=== PATIENT | male | born 1965 | race African-American/Black ===

== ENCOUNTER 2016-06-29 13:52 | Emergency (ER) | payer MEDICAID ==
[~2016-06-29] VITALS: Ht 175.3 cm; Wt 75.0 kg
[~2016-06-29 13:52] MED LIST: CEPH500C2 PO; CYCL5TAB PO; DIPH25CA83 PO; P20 PO
[2016-06-29 16:23] LABS: BASOPHILS % 0.6 % (0.0-2.0); EOSINOPHILS % 0.1 % (0.0-5.0); HEMATOCRIT. 44.7 % (42.0-52.0); HEMOGLOBIN. 14.7 g/dL (14.0-18.0); LYMPHOCYTES % 20.1 % (20.0-50.0); MEAN CORPUSCULAR HEMOGLOBIN 31.3 pg (28.0-32.0); MEAN CORPUSCULAR HGB CONC 32.9 g/dL (31.0-37.0); MEAN CORPUSCULAR VOLUME 95.1 fL (80.0-94.0); MEAN PLATELET VOLUME 6.9 fl (7.4-10.4); MONOCYTES % 3.6 % (2.0-8.0); NEUTROPHILS % 75.6 % (40.0-76.0); PLATELET 426 x1000/uL (130-400); RED CELL DISTRIBUTION WIDTH 14.3 % (11.6-14.6)
[2016-06-29 16:25] VITALS: BP 155/80
[2016-06-29 16:26] LABS: CHLORIDE 110 mEq/L (98-107); INDEX HEMOLYSI 1 (1-3); INDEX ICTERIC 1 (1-4); INDEX LIPEMIC 1 (1-3)
[2016-06-29 16:33] LABS: ALBUMIN 3.8 g/dL (3.4-5.0); ANION GAP 15; CALCIUM 8.8 mg/dL (8.5-10.1); CARBON DIOXIDE 22 mEq/L (21-32); UREA NITROGEN BLOOD 6 mg/dL (7-21); eGFR > 60 mL/min (>60)
[2016-06-29 16:36] LABS: ALANINE AMINOTRANSFERASE 9 IU/L (13-61)
[2016-06-29] MEDS ORDERED: ACETAMINOPHEN 500MG TABLET PO ONE (17:30)
== END 2016-06-29 18:22 | disposition home or self-care (01) ==
LOC: ER 14:09
DX: B35.3 Tinea pedis (principal); G89.29 Other chronic pain; M19.90 Unspecified osteoarthritis, unspecified site; M79.671 Pain in right foot; M79.672 Pain in left foot; Z79.899 Other long term (current) drug therapy
CPT/HCPCS: 36415; 73610; 80053; 85025; 99285; Z7610

== ENCOUNTER 2016-11-02 14:59 | Emergency (ER) | payer MEDICAID ==
[~2016-11-02] VITALS: Ht 172.7 cm; Wt 70.0 kg
[2016-11-02 15:01] VITALS: BP 177/106
== END 2016-11-02 20:33 | disposition left against medical advice (07) ==
LOC: ER 15:00
DX: M79.605 Pain in left leg (principal); M79.604 Pain in right leg; Z53.21 Procedure and treatment not carried out due to patient leaving prior to being seen by health care provider

== ENCOUNTER 2016-12-10 10:43 | Emergency (ER) | payer MEDICAID ==
[~2016-12-10] VITALS: Ht 172.7 cm; Wt 65.0 kg
[2016-12-10] MEDS ORDERED: SODIUM CHLORIDE 0.9% 1,000 ML IV ONE (17:02)
[2016-12-10] MEDS ORDERED: KETOROLAC 30MG/ML VIAL IV STA (17:02)
[2016-12-10 17:41] LABS: INR 1.1; PROTHROMBIN TIME 11.5 sec (9.4-11.6)
[2016-12-10 17:44] LABS: CARBON DIOXIDE 26 mEq/L (21-32); CHLORIDE 104 mEq/L (98-107)
[2016-12-10 17:49] LABS: BASOPHILS % 0.9 % (0.0-2.0); EOSINOPHILS % 1.2 % (0.0-5.0); HEMATOCRIT. 50.1 % (42.0-52.0); HEMOGLOBIN. 16.8 g/dL (14.0-18.0); LYMPHOCYTES % 32.9 % (20.0-50.0); MEAN CORPUSCULAR HEMOGLOBIN 31.8 pg (28.0-32.0); MEAN CORPUSCULAR VOLUME 94.6 fL (80.0-94.0); MEAN PLATELET VOLUME 7.3 fl (7.4-10.4); PLATELET 407 x1000/uL (130-400); RED BLOOD CELL COUNT 5.29 mill/uL (4.7-6.1)
[2016-12-10 18:51] VITALS: BP 151/82
== END 2016-12-10 20:36 | disposition home or self-care (01) ==
LOC: ER 10:52
DX: L97.829 Non-pressure chronic ulcer of other part of left lower leg with unspecified severity (principal); G89.29 Other chronic pain; M19.90 Unspecified osteoarthritis, unspecified site
CPT/HCPCS: 36415; 73562; 80053; 83605; 85025; 85610; 93971; 96361; 96374; 99285; J1885; J7030; Z7610

== ENCOUNTER 2016-12-19 13:06 | Emergency (ER) | payer MEDICAID ==
[~2016-12-19] VITALS: Ht 175.3 cm; Wt 76.0 kg
[2016-12-19] MEDS ORDERED: KETOROLAC 60MG/2ML VIAL IM ONE ×2 (14:30→16:00)
[2016-12-19] MEDS ORDERED: LIDOCAINE HCL 1% 20ML VIAL (Pyxis) INJ MC ONE (14:30)
[2016-12-19] MEDS ORDERED: BACITRACIN ZINC OINT UDPKT TOP ONE (14:30)
[2016-12-19] MEDS ORDERED: HYDROCODONE/ACETAMINOPHEN 5/325MG TABLET PO ONE (19:30)
[2016-12-19 20:18] VITALS: BP 151/78
== END 2016-12-19 21:40 | disposition home or self-care (01) ==
LOC: ER 14:48
DX: M25.562 Pain in left knee (principal); M25.561 Pain in right knee; I10 Essential (primary) hypertension; L97.829 Non-pressure chronic ulcer of other part of left lower leg with unspecified severity; Z79.899 Other long term (current) drug therapy
CPT/HCPCS: 73562; 73630; 96372; 99284; J1885

== ENCOUNTER 2021-04-01 20:00 | Inpatient (IN) | payer MEDICAID, OTHER ==
[~2021-04-01] VITALS: Ht 175.3 cm; Wt 55.4 kg
[2021-04-01] MEDS ORDERED: ACETAMINOPHEN 325MG TABLET PO STA (20:10)
[2021-04-01] MEDS ORDERED: SODIUM CHLORIDE 0.9% 1000ML BAG (SEPSIS BOLUS) IV ONE (20:15)
[2021-04-01] MEDS ORDERED: VANCOMYCIN 1G PREMIX 200 ML IV ONE (20:15)
[2021-04-01] MEDS ORDERED: ALBUTEROL (0.083%) 2.5MG/3ML NEB HHN ONE (20:15)
[2021-04-01 20:57] LABS: BASOPHILS % 1.5 % (0.0-2.0); HEMATOCRIT. 33.8 % (42.0-52.0); LYMPHOCYTES % 39.9 % (20.0-50.0); MEAN CORPUSCULAR HEMOGLOBIN 27.8 pg (28.0-32.0); MEAN PLATELET VOLUME 7.8 fl (7.4-10.4); NEUTROPHILS % 47.6 % (40.0-76.0); PLATELET 410 x1000/uL (130-400); RED BLOOD CELL COUNT 3.97 mill/uL (4.7-6.1)
[2021-04-01 21:04] LABS: CHLORIDE 106 mEq/L (98-107)
[2021-04-01 21:09] LABS: ETHANOL BLOOD < 10 mg/dL
[2021-04-01 21:18] LABS: C REACTIVE PROTEIN QUANT 9.5 mg/L (0.0-3.0)
[2021-04-01] MEDS: CEFEPIME 1,000 MG in DEXTROSE 5% WATER 50 ML IV SCH (21:44)
[2021-04-01] MEDS ORDERED: ALBUTEROL (0.083%) 2.5MG/3ML NEB HHN SCH (23:15)
[2021-04-01] MEDS ORDERED: METHYLPREDNISOLONE SOD SUCC 125 MG/2 ML VIAL IV SCH (23:15)
[2021-04-02] VITALS (8 sets, daily range): BP systolic 120–157; BP diastolic 74–96
[2021-04-02] MEDS ORDERED: ALBUTEROL (0.5%) 2.5MG/0.5ML NEB HHN ONE (00:30)
[2021-04-02] MEDS ORDERED: AZITHROMYCIN 500 MG in DEXT 5% WATER 250 ML IV SCH (00:30)
[2021-04-02] MEDS ORDERED: IPRATROPIUM/ALBUTEROL 0.5-3(2.5)MG/3ML NEB HHN PRN (00:30)
[2021-04-02] MEDS: METHYLPREDNISOLONE SOD SUCC 125 MG/2 ML VIAL IV SCH ×3 (00:30→08:57)
[2021-04-02] MEDS ORDERED: ONDANSETRON HCL 4MG/2ML INJ IV PRN (00:30)
[2021-04-02] MEDS ORDERED: ACETAMINOPHEN 325MG TABLET PO PRN (00:30)
[2021-04-02] MEDS ORDERED: MAGNESIUM/ALUMINUM HYDROXIDE/SIMETHICONE 30ML UDC PO PRN (00:30)
[2021-04-02] MEDS ORDERED: CEFTRIAXONE 1 G PREMIX 50 ML IV SCH ×2 (00:30→12:45)
[2021-04-02 01:12] LABS: CLARITY URINE CLEAR (CLEAR); COLOR URINE YELLOW (YELLOW); KETONES URINE NEGATIVE (NEGATIVE); LEUKOCYTE ESTERASE URINE NEGATIVE (NEGATIVE); NITRITE URINE NEGATIVE (NEGATIVE); OCCULT BLOOD URINE NEGATIVE (NEGATIVE); PROTEIN URINE 1+ (NEGATIVE); SPECIFIC GRAVITY URINE 1.014 (1.005-1.030)
[2021-04-02 01:47] LABS: *AMPHETAMINES SCREEN URINE NEGATIVE (NEGATIVE); *BARBITURATES SCREEN URINE NEGATIVE (NEGATIVE)
[2021-04-02 01:48] LABS: *BENZODIAZEPINES SCREEN URINE NEGATIVE (NEGATIVE); *COCAINE SCREEN URINE PRESUMTIVE POSITIVE (NEGATIVE); CANNABINOID URINE SCREEN PRESUMTIVE POSITIVE (NEGATIVE); METHADONE URINE SCREEN NEGATIVE (NEGATIVE); OPIATES URINE SCREEN NEGATIVE (NEGATIVE); PHENCYCLIDINE URINE SCREEN NEGATIVE (NEGATIVE)
[2021-04-02] MEDS: CLONIDINE 0.1MG TABLET PO PRN (06:59)
[2021-04-02] MEDS: CEFEPIME 1,000 MG in DEXTROSE 5% WATER 50 ML IV SCH (08:57)
[2021-04-02] MEDS: ENOXAPARIN 40MG/0.4ML SYR SUBCUT SCH (08:58)
[2021-04-02] MEDS ORDERED: AZITHROMYCIN 500MG/250ML 250 ML IV ONE (12:45)
[2021-04-02] MEDS: POTASSIUM CHLORIDE 20MEQ TABLET SR PO SCH (12:54)
[2021-04-02] MEDS: FUROSEMIDE 40MG/4ML VIAL IVP SCH (12:54)
[2021-04-02] MEDS ORDERED: CEFTRIAXONE 1,000 MG in DEXTROSE 5% WATER 50 ML IV SCH (20:30)
[2021-04-02] MEDS ORDERED: AZITHROMYCIN 500MG in DEXTROSE 5% WATER 250ML IV SCH (21:00)
[2021-04-02] MEDS: METHYLPREDNISOLONE SOD SUCC 40 MG/ML VIAL IV SCH (21:23)
[2021-04-03] VITALS (10 sets, daily range): BP systolic 111–173; BP diastolic 54–94
[2021-04-03] MEDS: CLONIDINE 0.1MG TABLET PO PRN (04:17)
[2021-04-03] MEDS: METHYLPREDNISOLONE SOD SUCC 40 MG/ML VIAL IV SCH ×2 (05:29→14:00)
[2021-04-03 09:24] LABS: HEMATOCRIT. 32.1 % (42.0-52.0); HEMOGLOBIN. 10.3 g/dL (14.0-18.0); MEAN CORPUSCULAR HEMOGLOBIN 27.1 pg (28.0-32.0); MEAN CORPUSCULAR VOLUME 84.9 fL (80.0-94.0); MEAN PLATELET VOLUME 8.5 fl (7.4-10.4); PLATELET 370 x1000/uL (130-400); RED BLOOD CELL COUNT 3.78 mill/uL (4.7-6.1)
[2021-04-03 09:34] LABS: CHLORIDE 105 mEq/L (98-107)
[2021-04-03 09:41] LABS: LDL CHOLESTEROL 99 mg/dL (5-100)
[2021-04-03 09:42] LABS: HDL CHOLESTEROL 36 mg/dL (40-59)
[2021-04-03] MEDS: FUROSEMIDE 40MG/4ML VIAL IVP SCH (10:15)
[2021-04-03] MEDS: POTASSIUM CHLORIDE 20MEQ TABLET SR PO SCH (10:15)
[2021-04-03] MEDS: ENOXAPARIN 40MG/0.4ML SYR SUBCUT SCH (10:16)
[2021-04-03 15:15] LABS: PLATELET ESTIMATE NORMAL
== END 2021-04-03 16:50 | disposition home or self-care (01) | DRG 140 ==
LOC: ER 20:00 → EDBEDREQSVC 23:01 → EDBEDREQTM 23:01 → EDBEDREQ 23:01 → MICUSO 23:04 → 5EST 04-02 10:36
PROVIDERS: ADMIT Hospitalist; ATTEND Hospitalist
PROC: 5A09357 Assistance with Respiratory Ventilation, Less than 24 Consecutive Hours, Continuous Positive Airway Pressure (ICD-10-PCS; principal; 2021-04-02)
PROC: 5A09357 Assistance with Respiratory Ventilation, Less than 24 Consecutive Hours, Continuous Positive Airway Pressure (ICD-10-PCS; 2021-04-03)
DX: J44.1 Chronic obstructive pulmonary disease with (acute) exacerbation (principal); J96.01 Acute respiratory failure with hypoxia; I50.43 Acute on chronic combined systolic (congestive) and diastolic (congestive) heart failure; C79.51 Secondary malignant neoplasm of bone; J18.9 Pneumonia, unspecified organism; I11.0 Hypertensive heart disease with heart failure; C61 Malignant neoplasm of prostate; J44.0 Chronic obstructive pulmonary disease with (acute) lower respiratory infection; D64.9 Anemia, unspecified; E87.5 Hyperkalemia; F17.200 Nicotine dependence, unspecified, uncomplicated; F14.10 Cocaine abuse, uncomplicated; F12.10 Cannabis abuse, uncomplicated; E87.6 Hypokalemia; Z20.822 Contact with and (suspected) exposure to COVID-19; Z85.46 Personal history of malignant neoplasm of prostate; Z79.899 Other long term (current) drug therapy; Z87.01 Personal history of pneumonia (recurrent); Z82.49 Family history of ischemic heart disease and other diseases of the circulatory system; Z83.3 Family history of diabetes mellitus
CPT/HCPCS: 36415; 71045; 80053; 80061; 80305; 80320; 81003; 83605; 83880; 84145; 84484; 85025; 86140; 87426; 87804; 93005; 93306; 93970; 94640; 94660; 99291; C1893; J0456; J0692; J0696; J1650; J1940; J2405; J2920; J2930; J3370; J7030; J7060; G0480

== ENCOUNTER 2021-05-11 00:37 | Inpatient (IN) | payer OTHER ==
[2021-05-11] VITALS (56 sets, daily range): BP systolic 97–185; BP diastolic 57–104
[~2021-05-11] VITALS: Ht 165.1 cm; Wt 57.3 kg
[2021-05-11] MEDS ORDERED: METHYLPREDNISOLONE SOD SUCC 125 MG/2 ML VIAL IV STA (00:50)
[2021-05-11] MEDS ORDERED: IPRATROPIUM BROMIDE (0.02%) 0.5MG/2.5ML NEB HHN STA (00:50)
[2021-05-11] MEDS ORDERED: PIPERACILLIN/TAZ 3.375G PREMIX 50 ML IV ONE (01:00)
[2021-05-11] MEDS ORDERED: MAGNESIUM 2 G PREMIX 50 ML IV ONE (01:00)
[2021-05-11] MEDS ORDERED: VANCOMYCIN 1G PREMIX 200 ML IV ONE (01:00)
[2021-05-11] MEDS: ALBUTEROL (0.083%) 2.5MG/3ML NEB HHN SCH ×3 (01:30→02:00)
[2021-05-11] MEDS ORDERED: MIDAZOLAM HCL 50 MG in DEXTROSE 5% WATER 40 ML IV ONE (02:00)
[2021-05-11] MEDS ORDERED: SUCCINYLCHOLINE CHLORIDE 200MG/10ML IV ONE ×2 (02:00→09:17)
[2021-05-11] MEDS ORDERED: PROPOFOL 10MG/ML 100ML 100 ML IV ONE (02:00)
[2021-05-11 02:12] LABS: HEMATOCRIT. 33.6 % (42.0-52.0); HEMOGLOBIN. 10.7 g/dL (14.0-18.0); MEAN CORPUSCULAR HEMOGLOBIN 27.1 pg (28.0-32.0); MEAN CORPUSCULAR VOLUME 84.8 fL (80.0-94.0); MEAN PLATELET VOLUME 8.1 fl (7.4-10.4); PLATELET 467 x1000/uL (130-400); RED BLOOD CELL COUNT 3.96 mill/uL (4.7-6.1)
[2021-05-11] MEDS ORDERED: MIDAZOLAM 100MG/100ML PREMIX IV PRN (02:15)
[2021-05-11 02:21] LABS: CHLORIDE 106 mEq/L (98-107)
[2021-05-11 03:47] LABS: BG BASE EXCESS -4.4 mmol/L (-2.0-2.0); BG CARBOXYHEMOGLOBIN 3.7 % (0.5-1.5); BG DEOXYHEMOGLOBIN 1.2 % (0.0-5.0); BG FRACTION INSPIRED OXYGEN 100; BG HCO3 ACT 26.3 mmol/L (22.0-26.0); BG METHEMOGLOBIN 0.6 % (0.0-1.5); BG OXYGEN SATURATION 98.7 % (92.0-98.5); BG OXYHEMOGLOBIN 94.5 % (94.0-97.0); BG PCO2 78.1 mmHg (35.0-45.0); BG PH 7.145 (7.350-7.450); BG PO2 169.1 mmHg (75.0-100.0); BG SAMPLE SITE RIGHT RADIAL; BG TOTAL HEMOGLOBIN 13.8 g/dL (12.0-18.0); BG VENT MODE VENT - AC
[2021-05-11] MEDS ORDERED: MIDAZOLAM HCL 100 MG in SODIUM CHLORIDE 0.9% 100 ML IV PRN ×2 (04:30→09:45)
[2021-05-11] MEDS ORDERED: FENTANYL 2500MCG/250ML PMX 250 ML IV PRN ×2 (04:30→09:15)
[2021-05-11 06:27] LABS: PLATELET ESTIMATE INCREASED
[2021-05-11] MEDS ORDERED: IOHEXOL-350 100 ML BOTTLE ONE ×2 (07:19→12:42)
[2021-05-11 08:44] LABS: BG BASE EXCESS 0.4 mmol/L (-2.0-2.0); BG CARBOXYHEMOGLOBIN 0.7 % (0.5-1.5); BG DEOXYHEMOGLOBIN 4.7 % (0.0-5.0); BG HCO3 ACT 25.4 mmol/L (22.0-26.0); BG METHEMOGLOBIN 0.2 % (0.0-1.5); BG OXYGEN SATURATION 95.3 % (92.0-98.5); BG OXYHEMOGLOBIN 94.4 % (94.0-97.0); BG PCO2 42.8 mmHg (35.0-45.0); BG PH 7.392 (7.350-7.450); BG PO2 75.3 mmHg (75.0-100.0); BG SAMPLE SITE RIGHT BRACHIAL; BG TOTAL HEMOGLOBIN 10.8 g/dL (12.0-18.0); BG VENT MODE VENT - AC
[2021-05-11] MEDS ORDERED: MIDAZOLAM 100MG/100ML PMX 100 ML IV PRN (09:15)
[2021-05-11] MEDS ORDERED: ETOMIDATE 2MG/ML 10ML VIAL IV ONE (09:17)
[2021-05-11] MEDS ORDERED: FENTANYL CITRATE 2,500 MCG in SODIUM CHLORIDE 0.9% 200 ML IV PRN (09:45)
[2021-05-11] MEDS ORDERED: ONDANSETRON HCL 4MG/2ML INJ IV PRN ×2 (10:00)
[2021-05-11] MEDS ORDERED: ACETAMINOPHEN 325MG TABLET PO PRN (10:00)
[2021-05-11] MEDS: PANTOPRAZOLE SODIUM 40 MG/VIAL IV SCH (10:15)
[2021-05-11] MEDS: AMLODIPINE 10MG TABLET PO SCH (10:15)
[2021-05-11] MEDS ORDERED: METOPROLOL TARTRATE 50MG TABLET PO NR (10:30)
[2021-05-11] MEDS ORDERED: FUROSEMIDE 40MG/4ML VIAL IVP SCH (10:30)
[2021-05-11] MEDS ORDERED: CARVEDILOL 12.5MG TABLET PO SCH (10:30)
[2021-05-11] MEDS: LOSARTAN POTASSIUM 100 MG TABLET PO SCH (10:33)
[2021-05-11] MEDS: IPRATROPIUM/ALBUTEROL 0.5-3(2.5)MG/3ML NEB HHN SCH ×3 (12:18→20:05)
[2021-05-11] MEDS: PIPERACILLIN/TAZOBACTAM 3.375 G in DEXTROSE 5% WATER 50 ML IV SCH ×2 (13:16→21:34)
[2021-05-11] MEDS: CLONIDINE 0.1MG TABLET PO SCH ×2 (14:24→21:35)
[2021-05-11] MEDS: ACETYLCYSTEINE 100MG/ML 10% VIAL 4ML INH SCH (16:54)
[2021-05-11] MEDS ORDERED: METOPROLOL TARTRATE 50MG TABLET PO SCH (21:00)
[2021-05-11] MEDS: FENTANYL 2500MCG/250ML PMX 250 ML IV PRN (21:28)
[2021-05-11] MEDS: CARVEDILOL 12.5MG TABLET PO SCH (21:34)
[2021-05-12] VITALS (66 sets, daily range): BP systolic 100–149; BP diastolic 47–99
[2021-05-12] MEDS: IPRATROPIUM/ALBUTEROL 0.5-3(2.5)MG/3ML NEB HHN SCH ×6 (00:12→21:25)
[2021-05-12] MEDS: ACETYLCYSTEINE 100MG/ML 10% VIAL 4ML INH SCH ×4 (00:13→16:32)
[2021-05-12] MEDS: FENTANYL 2500MCG/250ML PMX 250 ML IV PRN (03:12)
[2021-05-12 05:36] LABS: BASOPHILS % 0.5 % (0.0-2.0); EOSINOPHILS % 0.1 % (0.0-5.0); HEMATOCRIT. 28.1 % (42.0-52.0); MEAN CORPUSCULAR HEMOGLOBIN 27.2 pg (28.0-32.0); MEAN CORPUSCULAR VOLUME 84.4 fL (80.0-94.0); MEAN PLATELET VOLUME 8.2 fl (7.4-10.4); MONOCYTES % 8.6 % (2.0-8.0); NEUTROPHILS % 67.8 % (40.0-76.0); PLATELET 387 x1000/uL (130-400); RED BLOOD CELL COUNT 3.33 mill/uL (4.7-6.1); RED CELL DISTRIBUTION WIDTH 16.4 % (11.6-14.6)
[2021-05-12] MEDS: CLONIDINE 0.1MG TABLET PO SCH (06:00)
[2021-05-12 06:06] LABS: CHLORIDE 105 mEq/L (98-107)
[2021-05-12] MEDS: PIPERACILLIN/TAZOBACTAM 3.375 G in DEXTROSE 5% WATER 50 ML IV SCH ×3 (06:43→21:07)
[2021-05-12] MEDS: PANTOPRAZOLE SODIUM 40 MG/VIAL IV SCH (08:02)
[2021-05-12] MEDS: AMLODIPINE 10MG TABLET PO SCH (08:03)
[2021-05-12] MEDS: CARVEDILOL 12.5MG TABLET PO SCH ×2 (08:03→20:23)
[2021-05-12] MEDS: LOSARTAN POTASSIUM 100 MG TABLET PO SCH (08:03)
[2021-05-12 08:50] LABS: BG CARBOXYHEMOGLOBIN 0.5 % (0.5-1.5); BG DEOXYHEMOGLOBIN 1.3 % (0.0-5.0); BG FRACTION INSPIRED OXYGEN 60; BG HCO3 ACT 26.5 mmol/L (22.0-26.0); BG METHEMOGLOBIN 0.2 % (0.0-1.5); BG OXYGEN SATURATION 98.7 % (92.0-98.5); BG PH 7.378 (7.350-7.450); BG PO2 127.9 mmHg (75.0-100.0); BG SAMPLE SITE RIGHT RADIAL; BG TOTAL HEMOGLOBIN 10.4 g/dL (12.0-18.0); BG VENT MODE VENT - AC
[2021-05-13] VITALS (36 sets, daily range): BP systolic 113–156; BP diastolic 50–102
[2021-05-13] MEDS: IPRATROPIUM/ALBUTEROL 0.5-3(2.5)MG/3ML NEB HHN SCH ×5 (00:15→20:07)
[2021-05-13] MEDS: PIPERACILLIN/TAZOBACTAM 3.375 G in DEXTROSE 5% WATER 50 ML IV SCH ×3 (07:21→21:46)
[2021-05-13] MEDS: ACETYLCYSTEINE 100MG/ML 10% VIAL 4ML INH SCH (09:46)
[2021-05-13 09:53] LABS: BASOPHILS % 1.2 % (0.0-2.0); EOSINOPHILS % 1.1 % (0.0-5.0); HEMATOCRIT. 28.6 % (42.0-52.0); HEMOGLOBIN. 9.5 g/dL (14.0-18.0); LYMPHOCYTES % 22.2 % (20.0-50.0); MEAN CORPUSCULAR VOLUME 84.8 fL (80.0-94.0); MEAN PLATELET VOLUME 7.8 fl (7.4-10.4); NEUTROPHILS % 66.5 % (40.0-76.0); PLATELET 373 x1000/uL (130-400); RED BLOOD CELL COUNT 3.38 mill/uL (4.7-6.1); RED CELL DISTRIBUTION WIDTH 16.4 % (11.6-14.6)
[2021-05-13 09:59] LABS: CHLORIDE 102 mEq/L (98-107)
[2021-05-13 10:02] LABS: BG BASE EXCESS 6.1 mmol/L (-2.0-2.0); BG CARBOXYHEMOGLOBIN 0.4 % (0.5-1.5); BG DEOXYHEMOGLOBIN 7.5 % (0.0-5.0); BG FRACTION INSPIRED OXYGEN 36; BG HCO3 ACT 30.7 mmol/L (22.0-26.0); BG METHEMOGLOBIN 0.3 % (0.0-1.5); BG OXYGEN SATURATION 92.4 % (92.0-98.5); BG OXYHEMOGLOBIN 91.8 % (94.0-97.0); BG PCO2 44.8 mmHg (35.0-45.0); BG PH 7.454 (7.350-7.450); BG PO2 64.7 mmHg (75.0-100.0); BG SAMPLE SITE RIGHT RADIAL; BG TOTAL HEMOGLOBIN 9.8 g/dL (12.0-18.0); BG VENT MODE NASAL CANNULA
[2021-05-13] MEDS: PANTOPRAZOLE SODIUM 40 MG/VIAL IV SCH (10:23)
[2021-05-13] MEDS: FUROSEMIDE 40MG/4ML VIAL IVP SCH ×2 (10:23→17:02)
[2021-05-13] MEDS: LOSARTAN POTASSIUM 100 MG TABLET PO SCH (10:24)
[2021-05-13] MEDS: CARVEDILOL 12.5MG TABLET PO SCH ×2 (10:24→21:47)
[2021-05-14] VITALS (19 sets, daily range): BP systolic 117–165; BP diastolic 43–114
[2021-05-14] MEDS: IPRATROPIUM/ALBUTEROL 0.5-3(2.5)MG/3ML NEB HHN SCH ×7 (00:20→21:40)
[2021-05-14] MEDS: ACETYLCYSTEINE 100MG/ML 10% VIAL 4ML INH SCH ×4 (04:10→21:40)
[2021-05-14] MEDS: PIPERACILLIN/TAZOBACTAM 3.375 G in DEXTROSE 5% WATER 50 ML IV SCH ×3 (08:42→21:47)
[2021-05-14] MEDS: FUROSEMIDE 40MG/4ML VIAL IVP SCH ×2 (08:42→17:16)
[2021-05-14] MEDS: LOSARTAN POTASSIUM 100 MG TABLET PO SCH (08:42)
[2021-05-14] MEDS: CARVEDILOL 12.5MG TABLET PO SCH ×2 (08:43→21:47)
[2021-05-14] MEDS: PANTOPRAZOLE SODIUM 40 MG/VIAL IV SCH (09:07)
[2021-05-14 13:32] LABS: EOSINOPHILS % 1.6 % (0.0-5.0); HEMATOCRIT. 32.2 % (42.0-52.0); HEMOGLOBIN. 10.6 g/dL (14.0-18.0); LYMPHOCYTES % 19.7 % (20.0-50.0); MEAN CORPUSCULAR HEMOGLOBIN 27.3 pg (28.0-32.0); MEAN CORPUSCULAR VOLUME 82.9 fL (80.0-94.0); MONOCYTES % 9.5 % (2.0-8.0); NEUTROPHILS % 68.2 % (40.0-76.0); PLATELET 444 x1000/uL (130-400); RED BLOOD CELL COUNT 3.88 mill/uL (4.7-6.1); RED CELL DISTRIBUTION WIDTH 16.7 % (11.6-14.6)
[2021-05-14 13:42] LABS: CHLORIDE 96 mEq/L (98-107)
[2021-05-14] MEDS ORDERED: POTASSIUM CHLORIDE 20MEQ TABLET SR PO NR (14:30)
[2021-05-15] VITALS (7 sets, daily range): BP systolic 121–156; BP diastolic 55–84
[2021-05-15] MEDS: IPRATROPIUM/ALBUTEROL 0.5-3(2.5)MG/3ML NEB HHN SCH ×3 (04:40→14:45)
[2021-05-15] MEDS: FUROSEMIDE 40MG/4ML VIAL IVP SCH ×2 (06:22→16:12)
[2021-05-15] MEDS: PIPERACILLIN/TAZOBACTAM 3.375 G in DEXTROSE 5% WATER 50 ML IV SCH ×2 (06:22→13:38)
[2021-05-15] MEDS: PANTOPRAZOLE SODIUM 40 MG/VIAL IV SCH (08:38)
[2021-05-15] MEDS: LOSARTAN POTASSIUM 100 MG TABLET PO SCH (08:38)
[2021-05-15] MEDS: CARVEDILOL 12.5MG TABLET PO SCH (08:39)
[2021-05-15] MEDS: ACETYLCYSTEINE 100MG/ML 10% VIAL 4ML INH SCH (10:40)
[2021-05-16] MEDS ORDERED: FAMOTIDINE 20MG TABLET PO SCH (06:40)
== END 2021-05-15 18:34 | disposition home or self-care (01) | DRG 720 ==
LOC: ER 00:37 → MICUSO 03:00 → 7EST 05-14 09:46
PROVIDERS: ADMIT Internal Medicine; ATTEND Internal Medicine
PROC: 0BH17EZ Insertion of Endotracheal Airway into Trachea, Via Natural or Artificial Opening (ICD-10-PCS; principal; 2021-05-11)
PROC: 5A1945Z Respiratory Ventilation, 24-96 Consecutive Hours (ICD-10-PCS; 2021-05-11)
DX: A41.9 Sepsis, unspecified organism (principal); I50.23 Acute on chronic systolic (congestive) heart failure; I74.5 Embolism and thrombosis of iliac artery; E87.2 Acidosis; J96.01 Acute respiratory failure with hypoxia; I42.0 Dilated cardiomyopathy; J96.02 Acute respiratory failure with hypercapnia; C79.51 Secondary malignant neoplasm of bone; I74.09 Other arterial embolism and thrombosis of abdominal aorta; J18.9 Pneumonia, unspecified organism; K56.7 Ileus, unspecified; R65.20 Severe sepsis without septic shock; J84.10 Pulmonary fibrosis, unspecified; C61 Malignant neoplasm of prostate; I34.0 Nonrheumatic mitral (valve) insufficiency; Z20.822 Contact with and (suspected) exposure to COVID-19; I11.0 Hypertensive heart disease with heart failure; D64.9 Anemia, unspecified; I16.0 Hypertensive urgency; Z82.49 Family history of ischemic heart disease and other diseases of the circulatory system; Z83.3 Family history of diabetes mellitus; F19.11 Other psychoactive substance abuse, in remission
CPT/HCPCS: 36415; 36600; 71045; 71275; 74174; 80048; 80053; 82375; 82805; 83605; 83880; 84145; 84484; 85025; 85379; 87070; 87426; 93005; 93970; 94002; 94003; 94640; 99291; C1893; C9113; J0330; J1940; J2250; J2543; J2704; J2930; J3010; J3370; J3475; J3490; J7040; J7050; J7060; J7608; Q9967; A4315

== ENCOUNTER 2021-07-15 05:37 | Inpatient (IN) | payer MEDICAID, OTHER ==
[~2021-07-15] VITALS: Ht 175.3 cm; Wt 52.6 kg
[2021-07-15] MEDS ORDERED: ALBUTEROL (0.083%) 2.5MG/3ML NEB HHN STA (05:53)
[2021-07-15] MEDS ORDERED: METHYLPREDNISOLONE SOD SUCC 125 MG/2 ML VIAL IV STA (05:53)
[2021-07-15] MEDS ORDERED: IPRATROPIUM BROMIDE (0.02%) 0.5MG/2.5ML NEB HHN STA (05:53)
[2021-07-15] MEDS ORDERED: MAGNESIUM 2 G PREMIX 50 ML IV STA (05:54)
[2021-07-15 06:08] LABS: BASOPHILS % 2.6 % (0.0-2.0); EOSINOPHILS % 1.8 % (0.0-5.0); HEMATOCRIT. 38.4 % (42.0-52.0); LYMPHOCYTES % 46.1 % (20.0-50.0); MEAN CORPUSCULAR HEMOGLOBIN 26.3 pg (28.0-32.0); MEAN CORPUSCULAR VOLUME 84.2 fL (80.0-94.0); MEAN PLATELET VOLUME 7.6 fl (7.4-10.4); NEUTROPHILS % 38.5 % (40.0-76.0); PLATELET 509 x1000/uL (130-400); RED BLOOD CELL COUNT 4.55 mill/uL (4.7-6.1); RED CELL DISTRIBUTION WIDTH 18.2 % (11.6-14.6)
[2021-07-15 06:17] LABS: CHLORIDE 108 mEq/L (98-107)
[2021-07-15] MEDS ORDERED: IPRATROPIUM BROMIDE (0.02%) 0.5MG/2.5ML NEB ONE (08:12)
[2021-07-15] MEDS ORDERED: ALBUTEROL (0.083%) 2.5MG/3ML NEB ONE (08:12)
[2021-07-15] MEDS ORDERED: FUROSEMIDE 40MG/4ML VIAL IVP ONE (08:30)
[2021-07-15] MEDS ORDERED: ENALAPRIL 2.5MG/2ML VIAL 2ML IV ONE (08:30)
[2021-07-15] MEDS ORDERED: ENALAPRIL 1.25MG/ML VIAL 1ML IV SCH (08:30)
[2021-07-15 11:14] LABS: BG BASE EXCESS 3.3 mmol/L (-2.0-2.0); BG CARBOXYHEMOGLOBIN 0.6 % (0.5-1.5); BG DEOXYHEMOGLOBIN 6.9 % (0.0-5.0); BG FRACTION INSPIRED OXYGEN 36; BG HCO3 ACT 27.6 mmol/L (22.0-26.0); BG METHEMOGLOBIN 0.2 % (0.0-1.5); BG OXYHEMOGLOBIN 92.3 % (94.0-97.0); BG PCO2 41.1 mmHg (35.0-45.0); BG PH 7.445 (7.350-7.450); BG PO2 63.1 mmHg (75.0-100.0); BG SAMPLE SITE RIGHT RADIAL; BG TOTAL HEMOGLOBIN 11.6 g/dL (12.0-18.0); BG VENT MODE NASAL CANNULA
[2021-07-15] MEDS ORDERED: ONDANSETRON HCL 4MG/2ML INJ IV PRN (12:00)
[2021-07-15] MEDS ORDERED: DIPHENHYDRAMINE 50MG/ML VIAL IV PRN (12:00)
[2021-07-15] MEDS ORDERED: ACETAMINOPHEN 325MG TABLET PO PRN (12:00)
[2021-07-15] MEDS ORDERED: CLONIDINE 0.1MG TABLET PO PRN (12:00)
[2021-07-15] MEDS ORDERED: HYDRALAZINE 20MG/ML VIAL IV PRN (12:00)
[2021-07-15] MEDS ORDERED: NALOXONE HCL 0.4MG/ML VIAL IV PRN (12:00)
[2021-07-15] MEDS ORDERED: MORPHINE SULFATE 2 MG/ML CPJ (NOT FOR IM USE) IV PRN (12:00)
[2021-07-15] MEDS ORDERED: IPRATROPIUM/ALBUTEROL 0.5-3(2.5)MG/3ML NEB HHN PRN (12:00)
[2021-07-15 12:05] VITALS: BP_SYST 122; BP_SYST 140; BP_DIAS 63; BP_DIAS 73
[2021-07-15 14:00] VITALS: BP 151/78
[2021-07-15 15:51] VITALS: BP 142/73
[2021-07-15] MEDS: LOSARTAN POTASSIUM 25 MG TABLET PO SCH (17:08)
[2021-07-15] MEDS ORDERED: APIX2.5T PO (17:15)
[2021-07-15] MEDS ORDERED: BP MEDICATION (17:15)
[2021-07-15] MEDS ORDERED: PRED1TAB PO (17:15)
[2021-07-15 18:00] VITALS: BP 157/75
[2021-07-15 20:00] VITALS: BP 132/70
[2021-07-15] MEDS ORDERED: ATORVASTATIN CALCIUM 40MG TABLET PO SCH (21:00)
[2021-07-15 22:00] VITALS: BP 146/68
[2021-07-16] VITALS (7 sets, daily range): BP systolic 136–161; BP diastolic 65–86
[2021-07-16 06:30] LABS: BASOPHILS % 0.4 % (0.0-2.0); EOSINOPHILS % 0.4 % (0.0-5.0); HEMATOCRIT. 29.9 % (42.0-52.0); HEMOGLOBIN. 9.3 g/dL (14.0-18.0); LYMPHOCYTES % 26.2 % (20.0-50.0); MEAN CORPUSCULAR HEMOGLOBIN 25.4 pg (28.0-32.0); MEAN CORPUSCULAR VOLUME 81.9 fL (80.0-94.0); MEAN PLATELET VOLUME 7.5 fl (7.4-10.4); MONOCYTES % 10.5 % (2.0-8.0); NEUTROPHILS % 62.5 % (40.0-76.0); PLATELET 385 x1000/uL (130-400); RED BLOOD CELL COUNT 3.65 mill/uL (4.7-6.1)
[2021-07-16 07:17] LABS: CHLORIDE 107 mEq/L (98-107)
[2021-07-16] MEDS ORDERED: FURO40TA5 MT (08:30)
[2021-07-16] MEDS ORDERED: POTASSIUM CHLORIDE 20MEQ TABLET SR PO SCH (08:30)
[2021-07-16] MEDS ORDERED: SPIR25TA PO (08:30)
[2021-07-16] MEDS ORDERED: ASPI-1406 MT (08:30)
[2021-07-16] MEDS ORDERED: LOSA25TA3 PO (08:30)
[2021-07-16] MEDS ORDERED: LIP40 PO (08:30)
[2021-07-16] MEDS: LOSARTAN POTASSIUM 25 MG TABLET PO SCH (08:34)
[2021-07-16] MEDS ORDERED: FUROSEMIDE 40MG/4ML VIAL IVP SCH (09:00)
[2021-07-16] MEDS ORDERED: SPIRONOLACTONE 25MG TABLET PO SCH (09:00)
[2021-07-16] MEDS ORDERED: ASPIRIN 81MG TABLET PO SCH (09:00)
== END 2021-07-16 16:45 | disposition home or self-care (01) | DRG 140 ==
LOC: ER 05:37 → 5EST 09:57 → ENRESERV 11:34
PROVIDERS: ADMIT Internal Medicine; ATTEND Internal Medicine
PROC: 5A09357 Assistance with Respiratory Ventilation, Less than 24 Consecutive Hours, Continuous Positive Airway Pressure (ICD-10-PCS; principal; 2021-07-15)
DX: J44.1 Chronic obstructive pulmonary disease with (acute) exacerbation (principal); J96.01 Acute respiratory failure with hypoxia; I50.23 Acute on chronic systolic (congestive) heart failure; C79.51 Secondary malignant neoplasm of bone; C61 Malignant neoplasm of prostate; I11.0 Hypertensive heart disease with heart failure; D64.9 Anemia, unspecified; D72.824 Basophilia; I16.0 Hypertensive urgency; I73.9 Peripheral vascular disease, unspecified; Z20.822 Contact with and (suspected) exposure to COVID-19; Z77.098 Contact with and (suspected) exposure to other hazardous, chiefly nonmedicinal, chemicals; F17.210 Nicotine dependence, cigarettes, uncomplicated; I25.2 Old myocardial infarction; Z82.49 Family history of ischemic heart disease and other diseases of the circulatory system; Z83.3 Family history of diabetes mellitus; Z87.01 Personal history of pneumonia (recurrent); Z92.21 Personal history of antineoplastic chemotherapy; Z71.6 Tobacco abuse counseling
CPT/HCPCS: 36415; 36600; 71045; 80053; 82375; 82805; 83880; 84484; 85025; 87426; 93005; 93306; 93880; 94644; 94660; 99291; C9803; J0360; J1940; J2405; J2930; J3475; J3490

== ENCOUNTER 2021-08-22 10:25 | Emergency (ER) | payer OTHER ==
[~2021-08-22] VITALS: Ht 175.3 cm; Wt 67.0 kg
[~2021-08-22 10:25] MED LIST changes: +APIX2.5T PO; +ASPI-1406 MT; -CEPH500C2 PO; -CYCL5TAB PO; -DIPH25CA83 PO; +FURO40TA5 MT; +LIP40 PO; +LOSA25TA3 PO; -P20 PO; +PRED1TAB PO; +SPIR25TA PO
[2021-08-22] MEDS ORDERED: IPRATROPIUM/ALBUTEROL 0.5-3(2.5)MG/3ML NEB HHN ONE ×2 (10:45→13:00)
[2021-08-22] MEDS ORDERED: METHYLPREDNISOLONE SOD SUCC 125 MG/2 ML VIAL IV ONE (10:45)
[2021-08-22 12:07] LABS: BASOPHILS % 1.6 % (0.0-2.0); EOSINOPHILS % 0.3 % (0.0-5.0); HEMATOCRIT. 33.7 % (42.0-52.0); HEMOGLOBIN. 10.6 g/dL (14.0-18.0); MEAN CORPUSCULAR VOLUME 82.1 fL (80.0-94.0); MONOCYTES % 8.3 % (2.0-8.0); NEUTROPHILS % 71.8 % (40.0-76.0); PLATELET 481 x1000/uL (130-400); RED CELL DISTRIBUTION WIDTH 19.7 % (11.6-14.6)
[2021-08-22 12:12] LABS: CHLORIDE 106 mEq/L (98-107)
[2021-08-22 12:23] LABS: INR 1.1; PROTHROMBIN TIME 11.3 sec (9.6-11.0)
[2021-08-22] MEDS ORDERED: ALBU6.7H15 INH (13:21)
[2021-08-22] MEDS ORDERED: ALBU05 NEB (13:21)
[2021-08-22] MEDS ORDERED: NEBU-270 MC (13:21)
[2021-08-22] MEDS ORDERED: P50 MT (13:21)
[2021-08-22 14:50] VITALS: BP 153/79
== END 2021-08-22 14:40 | disposition home or self-care (01) ==
LOC: ER 10:25
DX: J44.1 Chronic obstructive pulmonary disease with (acute) exacerbation (principal); I11.0 Hypertensive heart disease with heart failure; I50.9 Heart failure, unspecified; Z85.6 Personal history of leukemia; F17.290 Nicotine dependence, other tobacco product, uncomplicated
CPT/HCPCS: 36415; 71045; 80053; 83690; 83880; 84484; 85025; 85610; 93005; 94640; 96374; 99285; J2930; Z7610

== ENCOUNTER 2021-11-03 00:34 | Inpatient (IN) | payer OTHER ==
[2021-11-03] VITALS (54 sets, daily range): BP systolic 123–172; BP diastolic 77–111
[~2021-11-03] VITALS: Ht 170.2 cm; Wt 50.5 kg
[~2021-11-03 00:34] MED LIST changes: +ALBU05 NEB; +ALBU6.7H15 INH; +NEBU-270 MC; -PRED1TAB PO
[2021-11-03] MEDS ORDERED: METHYLPREDNISOLONE SOD SUCC 125 MG/2 ML VIAL IV STA (01:14)
[2021-11-03] MEDS ORDERED: IPRATROPIUM BROMIDE (0.02%) 0.5MG/2.5ML NEB HHN STA (01:14)
[2021-11-03] MEDS ORDERED: MAGNESIUM 2 G PREMIX 50 ML IV ONE (01:15)
[2021-11-03 01:35] LABS: BASOPHILS % 3.3 % (0.0-2.0); CHLORIDE 102 mEq/L (98-107); EOSINOPHILS % 1.9 % (0.0-5.0); HEMATOCRIT. 29.5 % (42.0-52.0); HEMOGLOBIN. 9.1 g/dL (14.0-18.0); MEAN CORPUSCULAR HEMOGLOBIN 24.9 pg (28.0-32.0); MEAN CORPUSCULAR VOLUME 80.8 fL (80.0-94.0); MEAN PLATELET VOLUME 7.7 fl (7.4-10.4); NEUTROPHILS % 53.8 % (40.0-76.0); PLATELET 391 x1000/uL (130-400); RED BLOOD CELL COUNT 3.64 mill/uL (4.7-6.1); RED CELL DISTRIBUTION WIDTH 19.8 % (11.6-14.6)
[2021-11-03 02:01] LABS: BG BASE EXCESS 3.2 mmol/L (-2.0-2.0); BG CARBOXYHEMOGLOBIN 0.6 % (0.5-1.5); BG DEOXYHEMOGLOBIN 13.8 % (0.0-5.0); BG FRACTION INSPIRED OXYGEN 100; BG HCO3 ACT 33.6 mmol/L (22.0-26.0); BG METHEMOGLOBIN 0.2 % (0.0-1.5); BG OXYGEN SATURATION 86.1 % (92.0-98.5); BG OXYHEMOGLOBIN 85.4 % (94.0-97.0); BG PCO2 93.4 mmHg (35.0-45.0); BG PH 7.174 (7.350-7.450); BG PO2 69.3 mmHg (75.0-100.0); BG SAMPLE SITE RIGHT RADIAL; BG TOTAL HEMOGLOBIN 10.2 g/dL (12.0-18.0); BG VENT MODE MASK - NRB
[2021-11-03] MEDS: ALBUTEROL (0.083%) 2.5MG/3ML NEB HHN SCH ×5 (02:12→20:03)
[2021-11-03] MEDS ORDERED: KCL 20MEQ/100ML PREMIX 100 ML IV NR (02:45)
[2021-11-03] MEDS ORDERED: POTASSIUM CHLORIDE 20MEQ TABLET SR PO NR (02:45)
[2021-11-03] MEDS ORDERED: ASPIRIN 81MG TABLET PO NR (05:45)
[2021-11-03] MEDS ORDERED: MORPHINE SULFATE 2 MG/ML CPJ (NOT FOR IM USE) IV PRN (05:45)
[2021-11-03] MEDS ORDERED: PROPOFOL 10MG/ML 100ML 100 ML IV ONE (06:00)
[2021-11-03] MEDS ORDERED: SUCCINYLCHOLINE CHLORIDE 200MG/10ML IV ONE ×2 (06:00→09:12)
[2021-11-03] MEDS ORDERED: FENTANYL CITRATE/PF 50MCG/ML 2ML VIAL IV ONE (06:00)
[2021-11-03] MEDS ORDERED: NALOXONE HCL 0.4MG/ML VIAL IV PRN (06:00)
[2021-11-03] MEDS ORDERED: ETOMIDATE 2MG/ML 10ML VIAL IV ONE ×2 (06:00→09:12)
[2021-11-03 06:15] LABS: BASOPHILS % 0.5 % (0.0-2.0); EOSINOPHILS % 0.1 % (0.0-5.0); HEMATOCRIT. 30.8 % (42.0-52.0); HEMOGLOBIN. 9.1 g/dL (14.0-18.0); LYMPHOCYTES % 7.2 % (20.0-50.0); MEAN CORPUSCULAR HEMOGLOBIN 24.6 pg (28.0-32.0); MEAN CORPUSCULAR VOLUME 83.3 fL (80.0-94.0); MEAN PLATELET VOLUME 7.7 fl (7.4-10.4); MONOCYTES % 3.3 % (2.0-8.0); NEUTROPHILS % 88.9 % (40.0-76.0); PLATELET 400 x1000/uL (130-400); RED CELL DISTRIBUTION WIDTH 19.9 % (11.6-14.6)
[2021-11-03 06:21] LABS: CHLORIDE 106 mEq/L (98-107)
[2021-11-03] MEDS ORDERED: CEFTRIAXONE 1 G PREMIX 50 ML IV SCH (06:30)
[2021-11-03] MEDS ORDERED: POTASSIUM CHLORIDE INJ 40 MEQ in DEXT 5% WATER 250 ML IV ONE (06:30)
[2021-11-03] MEDS ORDERED: DEXTROSE 50% WATER 50ML SYRINGE IV PRN (06:30)
[2021-11-03] MEDS ORDERED: HYDROCODONE/ACETAMINOPHEN 5/325MG TABLET PO PRN (06:30)
[2021-11-03] MEDS ORDERED: MAGNESIUM/ALUMINUM HYDROXIDE/SIMETHICONE 30ML UDC PO PRN (06:30)
[2021-11-03] MEDS ORDERED: ACETAMINOPHEN 325MG TABLET PO PRN (06:30)
[2021-11-03] MEDS ORDERED: DOCUSATE SODIUM 100MG CAPSULE PO PRN (06:30)
[2021-11-03] MEDS ORDERED: CLONIDINE 0.1MG TABLET PO PRN (06:30)
[2021-11-03] MEDS ORDERED: ONDANSETRON HCL 4MG/2ML INJ IV PRN (06:30)
[2021-11-03 06:51] LABS: BG BASE EXCESS -1.5 mmol/L (-2.0-2.0); BG CARBOXYHEMOGLOBIN 0.3 % (0.5-1.5); BG FRACTION INSPIRED OXYGEN 80; BG HCO3 ACT 27.9 mmol/L (22.0-26.0); BG METHEMOGLOBIN 0.3 % (0.0-1.5); BG OXYHEMOGLOBIN 94.4 % (94.0-97.0); BG PCO2 76.2 mmHg (35.0-45.0); BG PH 7.182 (7.350-7.450); BG PO2 100.4 mmHg (75.0-100.0); BG SAMPLE SITE LEFT RADIAL; BG TOTAL HEMOGLOBIN 10.2 g/dL (12.0-18.0); BG VENT MODE VENT - AC
[2021-11-03] MEDS ORDERED: KCL 20MEQ/100ML X 2 FOR TOTAL KCL 40MEQ/200ML IV SCH ×2 (07:00→13:00)
[2021-11-03] MEDS ORDERED: AZITHROMYCIN 500 MG in DEXT 5% WATER 250 ML IV SCH (08:00)
[2021-11-03] MEDS: CEFTRIAXONE 1,000 MG in DEXTROSE 5% WATER 50 ML IV SCH (08:00)
[2021-11-03] MEDS: INSULIN LISPRO 100 UNITS/ML SUBCUT SCH ×4 (08:17→21:00)
[2021-11-03] MEDS: BLOOD SUGAR DIAGNOSTIC STRIP TEST SCH ×4 (08:48→20:24)
[2021-11-03] MEDS: FUROSEMIDE 40MG/4ML VIAL IVP SCH (09:02)
[2021-11-03] MEDS: METHYLPREDNISOLONE SOD SUCC 40 MG/ML VIAL IV SCH ×3 (09:02→21:17)
[2021-11-03] MEDS: ENOXAPARIN 40MG/0.4ML SYR SUBCUT SCH (09:02)
[2021-11-03] MEDS: PANTOPRAZOLE SODIUM 40 MG/VIAL IV SCH (09:02)
[2021-11-03 09:20] LABS: CLARITY URINE CLOUDY (CLEAR); COLOR URINE YELLOW (YELLOW); KETONES URINE NEGATIVE (NEGATIVE); LEUKOCYTE ESTERASE URINE NEGATIVE (NEGATIVE); NITRITE URINE NEGATIVE (NEGATIVE); OCCULT BLOOD URINE 3+ (NEGATIVE); PH URINE 5.5 (4.5-8.0); PROTEIN URINE 3+ (NEGATIVE)
[2021-11-03 09:45] LABS: BG BASE EXCESS 5.5 mmol/L (-2.0-2.0); BG CARBOXYHEMOGLOBIN 0.3 % (0.5-1.5); BG DEOXYHEMOGLOBIN 1.4 % (0.0-5.0); BG FRACTION INSPIRED OXYGEN 80; BG HCO3 ACT 31.6 mmol/L (22.0-26.0); BG METHEMOGLOBIN 0.2 % (0.0-1.5); BG OXYGEN SATURATION 98.6 % (92.0-98.5); BG OXYHEMOGLOBIN 98.1 % (94.0-97.0); BG PCO2 54.3 mmHg (35.0-45.0); BG PH 7.383 (7.350-7.450); BG PO2 133.8 mmHg (75.0-100.0); BG SAMPLE SITE LEFT RADIAL; BG TOTAL HEMOGLOBIN 10.4 g/dL (12.0-18.0); BG VENT MODE VENT - AC
[2021-11-03 09:55] LABS: *AMPHETAMINES SCREEN URINE NEGATIVE (NEGATIVE); *BARBITURATES SCREEN URINE NEGATIVE (NEGATIVE); *BENZODIAZEPINES SCREEN URINE NEGATIVE (NEGATIVE); *COCAINE SCREEN URINE PRESUMTIVE POSITIVE (NEGATIVE); CANNABINOID URINE SCREEN NEGATIVE (NEGATIVE); METHADONE URINE SCREEN NEGATIVE (NEGATIVE); OPIATES URINE SCREEN NEGATIVE (NEGATIVE); PHENCYCLIDINE URINE SCREEN NEGATIVE (NEGATIVE)
[2021-11-03] MEDS: PROPOFOL 10MG/ML 100ML 100 ML IV PRN ×2 (10:46→16:19)
[2021-11-03] MEDS: AZITHROMYCIN 500 MG in DEXT 5% WATER 250 ML IV SCH (11:14)
[2021-11-03] MEDS ORDERED: PROPOFOL 10MG/ML 100ML 100 ML IV PRN (14:15)
[2021-11-04] VITALS (59 sets, daily range): BP systolic 120–179; BP diastolic 60–110
[2021-11-04] MEDS: ALBUTEROL (0.083%) 2.5MG/3ML NEB HHN SCH ×7 (00:16→23:18)
[2021-11-04] MEDS: PROPOFOL 10MG/ML 100ML 100 ML IV PRN (01:51)
[2021-11-04 05:16] LABS: BASOPHILS % 0.2 % (0.0-2.0); HEMATOCRIT. 25.4 % (42.0-52.0); HEMOGLOBIN. 8.1 g/dL (14.0-18.0); LYMPHOCYTES % 10.1 % (20.0-50.0); MEAN CORPUSCULAR HEMOGLOBIN 25.2 pg (28.0-32.0); MEAN CORPUSCULAR VOLUME 79.2 fL (80.0-94.0); NEUTROPHILS % 83.7 % (40.0-76.0); PLATELET 322 x1000/uL (130-400); RED BLOOD CELL COUNT 3.21 mill/uL (4.7-6.1); RED CELL DISTRIBUTION WIDTH 19.1 % (11.6-14.6)
[2021-11-04 05:33] LABS: CHLORIDE 104 mEq/L (98-107)
[2021-11-04] MEDS: METHYLPREDNISOLONE SOD SUCC 40 MG/ML VIAL IV SCH ×3 (05:37→21:27)
[2021-11-04] MEDS: BLOOD SUGAR DIAGNOSTIC STRIP TEST SCH ×4 (05:37→21:25)
[2021-11-04 05:55] LABS: HDL CHOLESTEROL 42 mg/dL (40-59); LDL CHOLESTEROL 71 mg/dL (5-100); PHOSPHORUS 3.1 mg/dL (2.5-4.9); T4 FREE 1.36 ng/dL (0.76-1.46)
[2021-11-04] MEDS: INSULIN LISPRO 100 UNITS/ML SUBCUT SCH ×5 (07:00→21:27)
[2021-11-04] MEDS ORDERED: POTASSIUM CHLORIDE 20MEQ/PACKET PO NR ×2 (07:45→14:00)
[2021-11-04] MEDS: ENOXAPARIN 40MG/0.4ML SYR SUBCUT SCH (08:08)
[2021-11-04] MEDS: PANTOPRAZOLE SODIUM 40 MG/VIAL IV SCH (08:08)
[2021-11-04] MEDS: CEFTRIAXONE 1,000 MG in DEXTROSE 5% WATER 50 ML IV SCH (08:10)
[2021-11-04] MEDS: FUROSEMIDE 40MG/4ML VIAL IVP SCH (08:10)
[2021-11-04 08:55] LABS: BG CARBOXYHEMOGLOBIN 0.3 % (0.5-1.5); BG DEOXYHEMOGLOBIN 1.3 % (0.0-5.0); BG FRACTION INSPIRED OXYGEN 40; BG HCO3 ACT 28.6 mmol/L (22.0-26.0); BG METHEMOGLOBIN 0.2 % (0.0-1.5); BG OXYGEN SATURATION 98.7 % (92.0-98.5); BG OXYHEMOGLOBIN 98.2 % (94.0-97.0); BG PH 7.494 (7.350-7.450); BG PO2 137.7 mmHg (75.0-100.0); BG SAMPLE SITE LEFT RADIAL; BG TOTAL HEMOGLOBIN 9.6 g/dL (12.0-18.0); BG VENT MODE VENT - AC
[2021-11-04 10:22] LABS: BG BASE EXCESS 5.9 mmol/L (-2.0-2.0); BG CARBOXYHEMOGLOBIN 0.5 % (0.5-1.5); BG DEOXYHEMOGLOBIN 3.5 % (0.0-5.0); BG HCO3 ACT 29.4 mmol/L (22.0-26.0); BG METHEMOGLOBIN 0.2 % (0.0-1.5); BG OXYGEN SATURATION 96.5 % (92.0-98.5); BG OXYHEMOGLOBIN 95.8 % (94.0-97.0); BG PCO2 38.4 mmHg (35.0-45.0); BG PH 7.502 (7.350-7.450); BG PO2 89.7 mmHg (75.0-100.0); BG SAMPLE SITE RIGHT RADIAL; BG TOTAL HEMOGLOBIN 9.6 g/dL (12.0-18.0); BG VENT MODE VENT - CPAP
[2021-11-04] MEDS: AZITHROMYCIN 500 MG in DEXT 5% WATER 250 ML IV SCH (10:23)
[2021-11-05] VITALS (27 sets, daily range): BP systolic 113–155; BP diastolic 60–99
[2021-11-05] MEDS: ALBUTEROL (0.083%) 2.5MG/3ML NEB HHN SCH ×3 (04:00→12:14)
[2021-11-05 05:39] LABS: BASOPHILS % 0.1 % (0.0-2.0); HEMATOCRIT. 24.2 % (42.0-52.0); HEMOGLOBIN. 7.7 g/dL (14.0-18.0); LYMPHOCYTES % 10.9 % (20.0-50.0); MEAN CORPUSCULAR HEMOGLOBIN 25.6 pg (28.0-32.0); MEAN CORPUSCULAR VOLUME 80.6 fL (80.0-94.0); MEAN PLATELET VOLUME 8.2 fl (7.4-10.4); PLATELET 323 x1000/uL (130-400); RED BLOOD CELL COUNT 3.01 mill/uL (4.7-6.1)
[2021-11-05] MEDS: BLOOD SUGAR DIAGNOSTIC STRIP TEST SCH ×2 (05:41→11:55)
[2021-11-05 05:58] LABS: CHLORIDE 101 mEq/L (98-107)
[2021-11-05] MEDS: INSULIN LISPRO 100 UNITS/ML SUBCUT SCH ×2 (06:15→11:56)
[2021-11-05] MEDS: METHYLPREDNISOLONE SOD SUCC 40 MG/ML VIAL IV SCH (06:15)
[2021-11-05] MEDS: CEFTRIAXONE 1,000 MG in DEXTROSE 5% WATER 50 ML IV SCH (07:45)
[2021-11-05] MEDS ORDERED: IPRA3AMP9 NEB (07:47)
[2021-11-05 08:02] LABS: BG BASE EXCESS 6.4 mmol/L (-2.0-2.0); BG CARBOXYHEMOGLOBIN 0.6 % (0.5-1.5); BG DEOXYHEMOGLOBIN 6.2 % (0.0-5.0); BG FRACTION INSPIRED OXYGEN 21; BG HCO3 ACT 30.3 mmol/L (22.0-26.0); BG METHEMOGLOBIN 0.2 % (0.0-1.5); BG OXYGEN SATURATION 93.8 % (92.0-98.5); BG PCO2 40.9 mmHg (35.0-45.0); BG PH 7.488 (7.350-7.450); BG PO2 73.1 mmHg (75.0-100.0); BG SAMPLE SITE UAL; BG VENT MODE ROOM AIR
[2021-11-05] MEDS: FUROSEMIDE 40MG/4ML VIAL IVP SCH (08:48)
[2021-11-05] MEDS: PANTOPRAZOLE SODIUM 40 MG/VIAL IV SCH (08:48)
[2021-11-05] MEDS ORDERED: ENOXAPARIN 30MG/0.3ML SYR SUBCUT SCH (09:00)
[2021-11-05] MEDS: AZITHROMYCIN 500 MG in DEXT 5% WATER 250 ML IV SCH (09:13)
[2021-11-05] MEDS ORDERED: IRON SUCROSE COMPLEX 100 MG/5 ML ML IV SCH (09:30)
[2021-11-05] MEDS ORDERED: THROAT LOZENGES-BENZOCAINE/MENTH/CETYLPYRD CL LOZENGES MM PRN (10:30)
[2021-11-05] MEDS ORDERED: MED4 MT (14:26)
[2021-11-05] MEDS ORDERED: FERROUS SULFATE 325MG TABLET PO SCH (17:00)
[2021-11-05] MEDS ORDERED: METHYLPREDNISOLONE SOD SUCC 40 MG/ML VIAL IV SCH (21:00)
== END 2021-11-05 16:48 | disposition home or self-care (01) | DRG 816 ==
LOC: ER 00:34 → MICUNO 03:07 → ENRESERV 07:30
PROVIDERS: ADMIT Internal Medicine; ATTEND Internal Medicine
PROC: 5A1935Z Respiratory Ventilation, Less than 24 Consecutive Hours (ICD-10-PCS; principal; 2021-11-03)
PROC: 5A09357 Assistance with Respiratory Ventilation, Less than 24 Consecutive Hours, Continuous Positive Airway Pressure (ICD-10-PCS; 2021-11-03)
PROC: 0BH17EZ Insertion of Endotracheal Airway into Trachea, Via Natural or Artificial Opening (ICD-10-PCS; 2021-11-03)
DX: T40.5X1A Poisoning by cocaine, accidental (unintentional), initial encounter (principal); J96.02 Acute respiratory failure with hypercapnia; I21.4 Non-ST elevation (NSTEMI) myocardial infarction; J69.0 Pneumonitis due to inhalation of food and vomit; I50.43 Acute on chronic combined systolic (congestive) and diastolic (congestive) heart failure; C79.51 Secondary malignant neoplasm of bone; D64.9 Anemia, unspecified; E11.9 Type 2 diabetes mellitus without complications; I27.20 Pulmonary hypertension, unspecified; I42.9 Cardiomyopathy, unspecified; J84.9 Interstitial pulmonary disease, unspecified; I11.0 Hypertensive heart disease with heart failure; J44.1 Chronic obstructive pulmonary disease with (acute) exacerbation; E87.6 Hypokalemia; J68.0 Bronchitis and pneumonitis due to chemicals, gases, fumes and vapors; F19.10 Other psychoactive substance abuse, uncomplicated; F12.10 Cannabis abuse, uncomplicated; Z20.822 Contact with and (suspected) exposure to COVID-19; Z85.46 Personal history of malignant neoplasm of prostate; Y92.89 Other specified places as the place of occurrence of the external cause
CPT/HCPCS: 31500; 36415; 36600; 71045; 80048; 80053; 80061; 80076; 80305; 81003; 82375; 82805; 82962; 83036; 83605; 83735; 83880; 84100; 84145; 84439; 84443; 84484; 85025; 87070; 87426; 92610; 93005; 93306; 93970; 94002; 94003; 94640; 94660; 94664; 99291; C9113; C9803; J0330; J0456; J0696; J1650; J1815; J1940; J2270; J2704; J2920; J2930; J3010; J3475; J3480; J3490; J7060

== ENCOUNTER 2021-11-09 02:00 | Emergency (ER) | payer OTHER ==
[~2021-11-09] VITALS: Ht 177.8 cm; Wt 58.0 kg
[~2021-11-09 02:00] MED LIST changes: +IPRA3AMP9 NEB; +MED4 MT
[2021-11-09] MEDS ORDERED: FUROSEMIDE 40MG/4ML VIAL IV ONE (02:15)
[2021-11-09] MEDS ORDERED: NITROGLYCERIN 0.4MG TABLET SL SL PRN (02:15)
[2021-11-09] MEDS ORDERED: ASPIRIN 81MG TABLET PO ONE (02:15)
[2021-11-09] MEDS ORDERED: CALCIUM GLUCONATE 100MG/ML 10ML VIAL IV ONE (02:15)
[2021-11-09 03:18] LABS: BASOPHILS % 1.3 % (0.0-2.0); EOSINOPHILS % 1.8 % (0.0-5.0); HEMATOCRIT. 38.5 % (42.0-52.0); HEMOGLOBIN. 11.4 g/dL (14.0-18.0); LYMPHOCYTES % 36.2 % (20.0-50.0); MEAN CORPUSCULAR HEMOGLOBIN 25.8 pg (28.0-32.0); MEAN CORPUSCULAR VOLUME 87.3 fL (80.0-94.0); MEAN PLATELET VOLUME 8.3 fl (7.4-10.4); MONOCYTES % 5.2 % (2.0-8.0); NEUTROPHILS % 55.5 % (40.0-76.0); PLATELET 526 x1000/uL (130-400); RED BLOOD CELL COUNT 4.41 mill/uL (4.7-6.1)
[2021-11-09 03:30] LABS: INR 1.1; PARTIAL THROMBOPLASTIN TIME < 21.0 sec (23.4-31.0); PROTHROMBIN TIME 11.5 sec (9.6-11.0)
[2021-11-09 03:57] LABS: CHLORIDE 110 mEq/L (98-107)
[2021-11-09 04:05] LABS: ETHANOL BLOOD < 10 mg/dL
[2021-11-09 04:15] LABS: *AMPHETAMINES SCREEN URINE NEGATIVE (NEGATIVE); *BARBITURATES SCREEN URINE NEGATIVE (NEGATIVE); *BENZODIAZEPINES SCREEN URINE NEGATIVE (NEGATIVE); *COCAINE SCREEN URINE PRESUMTIVE POSITIVE (NEGATIVE); CANNABINOID URINE SCREEN NEGATIVE (NEGATIVE); METHADONE URINE SCREEN NEGATIVE (NEGATIVE); OPIATES URINE SCREEN NEGATIVE (NEGATIVE); PHENCYCLIDINE URINE SCREEN NEGATIVE (NEGATIVE)
[2021-11-09] MEDS ORDERED: IPRATROPIUM/ALBUTEROL 0.5-3(2.5)MG/3ML NEB HHN PRN (10:30)
[2021-11-09] MEDS ORDERED: ONDANSETRON HCL 4MG/2ML INJ IV PRN (10:30)
[2021-11-09] MEDS ORDERED: ACETAMINOPHEN 325MG TABLET PO PRN (10:30)
[2021-11-09 10:40] VITALS: BP 160/71
[2021-11-09] MEDS ORDERED: FUROSEMIDE 40MG/4ML VIAL IVP SCH (10:45)
[2021-11-09] MEDS ORDERED: LOSARTAN POTASSIUM 100 MG TABLET PO SCH (10:45)
[2021-11-24] MEDS ORDERED: APIX5TAB PO (15:03)
[2021-11-24] MEDS ORDERED: CARV3.1242 PO (15:03)
[2021-11-24] MEDS ORDERED: ERGO1250 PO (15:04)
[2021-11-24] MEDS ORDERED: OMEP20TA23 PO (15:06)
[2021-11-24] MEDS ORDERED: GABA-532 PO (15:06)
[2021-11-24] MEDS ORDERED: NAPR-681 PO (15:07)
[2021-11-24] MEDS ORDERED: ALPR-340 PO (15:08)
[2021-11-24] MEDS ORDERED: POTA-205 PO (15:09)
[2021-11-24] MEDS ORDERED: DIPH25TA23 PO (15:11)
[2021-11-26] MEDS ORDERED: MED4 MT (14:31)
[2021-11-26] MEDS ORDERED: IPRA3AMP9 NEB (14:31)
[2021-11-26] MEDS ORDERED: FURO40TA5 MT (14:31)
[2021-12-02] MEDS ORDERED: IPRA3AMP9 NEB (11:22)
[2021-12-02] MEDS ORDERED: MED4 MT (11:22)
[2021-12-02] MEDS ORDERED: FURO-151 MT (11:22)
[2021-12-02] MEDS ORDERED: ALBU18HF2 IH (11:22)
== END 2021-11-09 11:17 | disposition left against medical advice (07) ==
LOC: ER 02:00 → ENRESERV 08:07 → CANBEDREQ 11:06 → ER 11:17
DX: I11.0 Hypertensive heart disease with heart failure (principal); I50.9 Heart failure, unspecified; F15.10 Other stimulant abuse, uncomplicated; Z20.822 Contact with and (suspected) exposure to COVID-19
CPT/HCPCS: 36415; 71045; 80053; 80305; 80320; 83880; 84484; 85025; 85610; 85730; 87426; 93005; 93970; 96374; 96375; 99291; C9803; J0610; J1940; Z7610; 94660; G0480

== ENCOUNTER 2021-12-31 00:18 | Inpatient (IN) | payer OTHER ==
[~2021-12-31] VITALS: Ht 177.8 cm; Wt 45.4 kg
[2021-12-31] VITALS (15 sets, daily range): BP systolic 113–181; BP diastolic 64–94
[~2021-12-31 00:18] MED LIST changes: +ALBU18HF2 IH; +ALPR-340 PO; -APIX2.5T PO; +APIX5TAB PO; +CARV3.1242 PO; +DIPH25TA23 PO; +ERGO1250 PO; +FURO-151 MT; +GABA-532 PO; +NAPR-681 PO; +OMEP20TA23 PO; +POTA-205 PO
[2021-12-31] MEDS ORDERED: MAGNESIUM 2 G PREMIX 50 ML IV STA (00:31)
[2021-12-31] MEDS ORDERED: ALBUTEROL (0.083%) 2.5MG/3ML NEB HHN STA (00:31)
[2021-12-31] MEDS ORDERED: IPRATROPIUM BROMIDE (0.02%) 0.5MG/2.5ML NEB HHN STA (00:31)
[2021-12-31] MEDS ORDERED: METHYLPREDNISOLONE SOD SUCC 125 MG/2 ML VIAL IV STA (00:31)
[2021-12-31 01:09] LABS: EOSINOPHILS % 1.1 % (0.0-5.0); HEMATOCRIT. 30.2 % (42.0-52.0); MEAN CORPUSCULAR HEMOGLOBIN 23.2 pg (28.0-32.0); MEAN PLATELET VOLUME 7.5 fl (7.4-10.4); MONOCYTES % 8.9 % (2.0-8.0); PLATELET 482 x1000/uL (130-400); RED BLOOD CELL COUNT 3.87 mill/uL (4.7-6.1); RED CELL DISTRIBUTION WIDTH 18.9 % (11.6-14.6)
[2021-12-31 01:18] LABS: CHLORIDE 98 mEq/L (98-107)
[2021-12-31] MEDS ORDERED: FUROSEMIDE 100MG/10ML VIAL IVP NR (02:15)
[2021-12-31] MEDS ORDERED: FUROSEMIDE 40MG/4ML VIAL ONE (07:13)
[2021-12-31] MEDS ORDERED: MAGNESIUM 2 G PREMIX 50 ML IV ONE (07:45)
[2021-12-31] MEDS: BUDESONIDE 0.5MG/2ML NEB HHN SCH ×2 (12:38→20:13)
[2021-12-31] MEDS: IPRATROPIUM/ALBUTEROL 0.5-3(2.5)MG/3ML NEB HHN SCH ×3 (12:39→20:13)
[2021-12-31] MEDS ORDERED: ENOXAPARIN 40MG/0.4ML SYR SUBCUT SCH (12:45)
[2021-12-31] MEDS ORDERED: ACETAMINOPHEN 325MG TABLET PO PRN (12:45)
[2021-12-31] MEDS ORDERED: ONDANSETRON HCL 4MG/2ML INJ IV PRN (12:45)
[2021-12-31] MEDS: INSULIN LISPRO 100 UNITS/ML SUBCUT SCH ×3 (13:00→21:00)
[2021-12-31] MEDS ORDERED: DEXTROSE 50% WATER 50ML SYRINGE IV PRN (13:00)
[2021-12-31] MEDS: APIXABAN 5 MG TABLET PO SCH ×2 (14:21→17:00)
[2021-12-31] MEDS: ASPIRIN 81MG EC TABLET PO SCH (14:21)
[2021-12-31] MEDS: LOSARTAN POTASSIUM 25 MG TABLET PO SCH (14:22)
[2021-12-31] MEDS: CARVEDILOL 3.125 MG TABLET PO SCH ×2 (14:22→17:00)
[2021-12-31] MEDS: FUROSEMIDE 40MG/4ML VIAL IVP SCH ×2 (14:22→17:15)
[2021-12-31] MEDS: BLOOD SUGAR DIAGNOSTIC STRIP TEST SCH ×2 (17:39→21:33)
[2021-12-31] MEDS ORDERED: ATORVASTATIN CALCIUM 40MG TABLET PO SCH (21:00)
[2022-01-01] VITALS (8 sets, daily range): BP systolic 120–148; BP diastolic 58–78
[2022-01-01] MEDS: IPRATROPIUM/ALBUTEROL 0.5-3(2.5)MG/3ML NEB HHN SCH ×4 (01:04→12:27)
[2022-01-01] MEDS: BLOOD SUGAR DIAGNOSTIC STRIP TEST SCH (07:30)
[2022-01-01] MEDS ORDERED: PANTOPRAZOLE 40MG DR TABLET PO SCH (07:30)
[2022-01-01] MEDS: INSULIN LISPRO 100 UNITS/ML SUBCUT SCH (08:00)
[2022-01-01] MEDS: BUDESONIDE 0.5MG/2ML NEB HHN SCH (08:11)
[2022-01-01] MEDS ORDERED: SPIRONOLACTONE 25MG TABLET PO SCH (09:00)
[2022-01-01] MEDS: CARVEDILOL 3.125 MG TABLET PO SCH (10:15)
[2022-01-01] MEDS: LOSARTAN POTASSIUM 25 MG TABLET PO SCH (10:15)
[2022-01-01] MEDS: APIXABAN 5 MG TABLET PO SCH (10:15)
[2022-01-01] MEDS: ASPIRIN 81MG EC TABLET PO SCH (10:16)
[2022-01-01] MEDS: FUROSEMIDE 40MG/4ML VIAL IVP SCH (10:19)
== END 2022-01-01 15:45 | disposition home or self-care (01) | DRG 140 ==
LOC: ER 00:18 → MICUSO 02:03 → EDBEDREQ 02:07 → 5EST 08:54
PROVIDERS: ADMIT Internal Medicine; ATTEND Internal Medicine
PROC: 5A09357 Assistance with Respiratory Ventilation, Less than 24 Consecutive Hours, Continuous Positive Airway Pressure (ICD-10-PCS; principal; 2021-12-31)
DX: J44.1 Chronic obstructive pulmonary disease with (acute) exacerbation (principal); J96.21 Acute and chronic respiratory failure with hypoxia; I50.21 Acute systolic (congestive) heart failure; E11.9 Type 2 diabetes mellitus without complications; F14.10 Cocaine abuse, uncomplicated; D72.829 Elevated white blood cell count, unspecified; F17.210 Nicotine dependence, cigarettes, uncomplicated; Z20.822 Contact with and (suspected) exposure to COVID-19; I11.0 Hypertensive heart disease with heart failure; Z83.3 Family history of diabetes mellitus; Z82.49 Family history of ischemic heart disease and other diseases of the circulatory system; Z85.46 Personal history of malignant neoplasm of prostate
CPT/HCPCS: 36415; 71045; 80053; 82962; 83880; 84484; 85025; 87426; 93005; 94640; 94660; 99291; C9803; J1815; J1940; J2930; J3475; J7626

== ENCOUNTER 2022-02-03 19:08 | Inpatient (IN) | payer OTHER ==
[~2022-02-03] VITALS: Ht 167.6 cm; Wt 68.1 kg
[2022-02-03] MEDS ORDERED: METHYLPREDNISOLONE SOD SUCC 125 MG/2 ML VIAL IV STA (19:47)
[2022-02-03] MEDS ORDERED: IPRATROPIUM BROMIDE (0.02%) 0.5MG/2.5ML NEB HHN STA (19:47)
[2022-02-03] MEDS ORDERED: ALBUTEROL (0.083%) 2.5MG/3ML NEB HHN STA (19:47)
[2022-02-03] MEDS ORDERED: MAGNESIUM 2 G PREMIX 50 ML IV ONE (20:00)
[2022-02-03 22:01] LABS: BG BASE EXCESS 1.9 mmol/L (-2.0-2.0); BG CARBOXYHEMOGLOBIN 2.1 % (0.5-1.5); BG DEOXYHEMOGLOBIN 0.6 % (0.0-5.0); BG FRACTION INSPIRED OXYGEN 60; BG HCO3 ACT 28.3 mmol/L (22.0-26.0); BG METHEMOGLOBIN 0.2 % (0.0-1.5); BG OXYGEN SATURATION 99.4 % (92.0-98.5); BG OXYHEMOGLOBIN 97.1 % (94.0-97.0); BG PCO2 54.4 mmHg (35.0-45.0); BG PH 7.334 (7.350-7.450); BG PO2 194.1 mmHg (75.0-100.0); BG SAMPLE SITE RIGHT RADIAL; BG TOTAL HEMOGLOBIN 8.7 g/dL (12.0-18.0); BG VENT MODE MASK - BIPAP
[2022-02-03 23:16] LABS: BASOPHILS % 1.2 % (0.0-2.0); EOSINOPHILS % 0.1 % (0.0-5.0); HEMATOCRIT. 31.5 % (42.0-52.0); HEMOGLOBIN. 9.8 g/dL (14.0-18.0); LYMPHOCYTES % 7.2 % (20.0-50.0); MEAN CORPUSCULAR HEMOGLOBIN 24.7 pg (28.0-32.0); MEAN CORPUSCULAR VOLUME 79.6 fL (80.0-94.0); MEAN PLATELET VOLUME 7.8 fl (7.4-10.4); MONOCYTES % 2.9 % (2.0-8.0); NEUTROPHILS % 88.6 % (40.0-76.0); PLATELET 563 x1000/uL (130-400); RED BLOOD CELL COUNT 3.96 mill/uL (4.7-6.1); RED CELL DISTRIBUTION WIDTH 22.8 % (11.6-14.6)
[2022-02-03 23:25] LABS: INR 1.1; PARTIAL THROMBOPLASTIN TIME 31.3 sec (23.4-31.0); PROTHROMBIN TIME 11.4 sec (9.6-11.0)
[2022-02-03 23:27] LABS: PLATELET ESTIMATE INCREASED
[2022-02-03 23:28] LABS: CHLORIDE 105 mEq/L (98-107)
[2022-02-04] VITALS (7 sets, daily range): BP systolic 130–174; BP diastolic 69–90
[2022-02-04] MEDS ORDERED: AZITHROMYCIN 500 MG in DEXT 5% WATER 250 ML IV SCH ×2
[2022-02-04] MEDS ORDERED: IPRATROPIUM/ALBUTEROL 0.5-3(2.5)MG/3ML NEB HHN PRN (11:30)
[2022-02-04] MEDS ORDERED: ACETAMINOPHEN 650MG SUPP PR PRN (11:30)
[2022-02-04] MEDS ORDERED: DOCUSATE SODIUM 100MG CAPSULE PO PRN (11:30)
[2022-02-04] MEDS: METHYLPREDNISOLONE SOD SUCC 40 MG/ML VIAL IV SCH ×2 (12:42→22:30)
[2022-02-04] MEDS: IPRATROPIUM/ALBUTEROL 0.5-3(2.5)MG/3ML NEB HHN SCH ×2 (15:34→21:14)
[2022-02-04] MEDS: AZITHROMYCIN 500 MG in DEXT 5% WATER 250 ML IV SCH (15:34)
[2022-02-04] MEDS ORDERED: CLONIDINE 0.1MG TABLET PO PRN (16:15)
[2022-02-04] MEDS: LOSARTAN POTASSIUM 25 MG TABLET PO SCH (17:00)
[2022-02-04] MEDS ORDERED: FUROSEMIDE 40MG TABLET PO SCH (17:00)
[2022-02-04] MEDS: ASPIRIN 81MG EC TABLET PO SCH (17:00)
[2022-02-04] MEDS: SPIRONOLACTONE 25MG TABLET PO SCH (17:00)
[2022-02-04] MEDS: APIXABAN 5 MG TABLET PO SCH (17:00)
[2022-02-04] MEDS: FERROUS SULFATE 325MG TABLET PO SCH (18:00)
[2022-02-04] MEDS: ATORVASTATIN CALCIUM 40MG TABLET PO SCH (22:30)
[2022-02-04] MEDS: FAMOTIDINE 20MG TABLET PO SCH (22:30)
[2022-02-05] VITALS (11 sets, daily range): BP systolic 121–159; BP diastolic 36–84
[2022-02-05] MEDS: IPRATROPIUM/ALBUTEROL 0.5-3(2.5)MG/3ML NEB HHN SCH ×6 (01:03→21:13)
[2022-02-05] MEDS: METHYLPREDNISOLONE SOD SUCC 40 MG/ML VIAL IV SCH ×3 (06:27→21:03)
[2022-02-05 09:23] LABS: BASOPHILS % 0.5 % (0.0-2.0); HEMATOCRIT. 26.9 % (42.0-52.0); HEMOGLOBIN. 8.5 g/dL (14.0-18.0); LYMPHOCYTES % 16.8 % (20.0-50.0); MEAN CORPUSCULAR HEMOGLOBIN 24.4 pg (28.0-32.0); MEAN CORPUSCULAR VOLUME 77.5 fL (80.0-94.0); MEAN PLATELET VOLUME 7.5 fl (7.4-10.4); MONOCYTES % 8.3 % (2.0-8.0); NEUTROPHILS % 74.4 % (40.0-76.0); PLATELET 544 x1000/uL (130-400); RED BLOOD CELL COUNT 3.48 mill/uL (4.7-6.1); RED CELL DISTRIBUTION WIDTH 22.9 % (11.6-14.6)
[2022-02-05 09:53] LABS: CHLORIDE 104 mEq/L (98-107)
[2022-02-05] MEDS: ASPIRIN 81MG EC TABLET PO SCH (09:55)
[2022-02-05] MEDS: LOSARTAN POTASSIUM 25 MG TABLET PO SCH (09:55)
[2022-02-05] MEDS: SPIRONOLACTONE 25MG TABLET PO SCH (09:56)
[2022-02-05] MEDS: FUROSEMIDE 40MG TABLET PO SCH (09:56)
[2022-02-05] MEDS: FAMOTIDINE 20MG TABLET PO SCH ×2 (09:56→21:03)
[2022-02-05] MEDS: FERROUS SULFATE 325MG TABLET PO SCH ×3 (09:56→17:03)
[2022-02-05] MEDS: APIXABAN 5 MG TABLET PO SCH ×2 (09:56→17:03)
[2022-02-05 10:12] LABS: T4 FREE 1.08 ng/dL (0.76-1.46)
[2022-02-05 11:55] LABS: BG BASE EXCESS 5.5 mmol/L (-2.0-2.0); BG CARBOXYHEMOGLOBIN 0.3 % (0.5-1.5); BG DEOXYHEMOGLOBIN 1.8 % (0.0-5.0); BG FRACTION INSPIRED OXYGEN 32; BG HCO3 ACT 29.4 mmol/L (22.0-26.0); BG METHEMOGLOBIN 0.4 % (0.0-1.5); BG OXYGEN SATURATION 98.2 % (92.0-98.5); BG OXYHEMOGLOBIN 97.5 % (94.0-97.0); BG PCO2 40.4 mmHg (35.0-45.0); BG PO2 109.3 mmHg (75.0-100.0); BG SAMPLE SITE RIGHT BRACHIAL; BG TOTAL HEMOGLOBIN 9.2 g/dL (12.0-18.0); BG VENT MODE NASAL CANNULA
[2022-02-05] MEDS: AZITHROMYCIN 500 MG in DEXT 5% WATER 250 ML IV SCH (14:12)
[2022-02-05] MEDS ORDERED: ACETAMINOPHEN 325MG TABLET PO PRN (17:00)
[2022-02-05] MEDS: GUAIFENESIN 200MG/10ML SUGAR FREE UDC PO PRN (17:04)
[2022-02-05] MEDS: ATORVASTATIN CALCIUM 40MG TABLET PO SCH (21:03)
[2022-02-06] VITALS (10 sets, daily range): BP systolic 137–160; BP diastolic 65–88
[2022-02-06] MEDS: IPRATROPIUM/ALBUTEROL 0.5-3(2.5)MG/3ML NEB HHN SCH ×6 (00:52→23:36)
[2022-02-06] MEDS: METHYLPREDNISOLONE SOD SUCC 40 MG/ML VIAL IV SCH ×3 (04:41→21:47)
[2022-02-06 06:29] LABS: BASOPHILS % 0.1 % (0.0-2.0); HEMATOCRIT. 25.3 % (42.0-52.0); HEMOGLOBIN. 7.9 g/dL (14.0-18.0); LYMPHOCYTES % 8.9 % (20.0-50.0); MEAN CORPUSCULAR HEMOGLOBIN 23.9 pg (28.0-32.0); MEAN PLATELET VOLUME 7.5 fl (7.4-10.4); MONOCYTES % 4.4 % (2.0-8.0); NEUTROPHILS % 86.6 % (40.0-76.0); PLATELET 521 x1000/uL (130-400); RED BLOOD CELL COUNT 3.29 mill/uL (4.7-6.1); RED CELL DISTRIBUTION WIDTH 22.9 % (11.6-14.6)
[2022-02-06 06:51] LABS: CHLORIDE 101 mEq/L (98-107)
[2022-02-06] MEDS: APIXABAN 5 MG TABLET PO SCH ×2 (08:25→17:38)
[2022-02-06] MEDS: FAMOTIDINE 20MG TABLET PO SCH ×2 (08:25→21:47)
[2022-02-06] MEDS: ASPIRIN 81MG EC TABLET PO SCH (08:25)
[2022-02-06] MEDS: LOSARTAN POTASSIUM 25 MG TABLET PO SCH (08:25)
[2022-02-06] MEDS: FERROUS SULFATE 325MG TABLET PO SCH ×3 (08:25→17:38)
[2022-02-06] MEDS: FUROSEMIDE 40MG TABLET PO SCH (08:26)
[2022-02-06] MEDS: SPIRONOLACTONE 25MG TABLET PO SCH (08:26)
[2022-02-06 09:54] LABS: BG BASE EXCESS 1.3 mmol/L (-2.0-2.0); BG CARBOXYHEMOGLOBIN 0.3 % (0.5-1.5); BG DEOXYHEMOGLOBIN 6.5 % (0.0-5.0); BG FRACTION INSPIRED OXYGEN 21; BG HCO3 ACT 25.5 mmol/L (22.0-26.0); BG METHEMOGLOBIN 0.2 % (0.0-1.5); BG OXYGEN SATURATION 93.5 % (92.0-98.5); BG PH 7.434 (7.350-7.450); BG PO2 68.8 mmHg (75.0-100.0); BG SAMPLE SITE LEFT BRACHIAL; BG TOTAL HEMOGLOBIN 9.7 g/dL (12.0-18.0); BG VENT MODE ROOM AIR
[2022-02-06] MEDS: GUAIFENESIN 200MG/10ML SUGAR FREE UDC PO PRN (13:10)
[2022-02-06] MEDS: AZITHROMYCIN 500 MG in DEXT 5% WATER 250 ML IV SCH (13:12)
[2022-02-06] MEDS: ATORVASTATIN CALCIUM 40MG TABLET PO SCH (21:47)
[2022-02-07] VITALS (10 sets, daily range): BP systolic 127–166; BP diastolic 59–84
[2022-02-07] MEDS: METHYLPREDNISOLONE SOD SUCC 40 MG/ML VIAL IV SCH ×3 (04:00→21:00)
[2022-02-07] MEDS: IPRATROPIUM/ALBUTEROL 0.5-3(2.5)MG/3ML NEB HHN SCH ×5 (04:00→21:06)
[2022-02-07 06:44] LABS: BASOPHILS % 0.2 % (0.0-2.0); HEMATOCRIT. 30.4 % (42.0-52.0); HEMOGLOBIN. 9.3 g/dL (14.0-18.0); LYMPHOCYTES % 16.5 % (20.0-50.0); MEAN CORPUSCULAR HEMOGLOBIN 24.3 pg (28.0-32.0); MEAN CORPUSCULAR VOLUME 79.4 fL (80.0-94.0); MEAN PLATELET VOLUME 7.7 fl (7.4-10.4); MONOCYTES % 7.6 % (2.0-8.0); NEUTROPHILS % 75.7 % (40.0-76.0); PLATELET 522 x1000/uL (130-400); RED BLOOD CELL COUNT 3.83 mill/uL (4.7-6.1); RED CELL DISTRIBUTION WIDTH 23.2 % (11.6-14.6)
[2022-02-07 08:21] LABS: CHLORIDE 102 mEq/L (98-107)
[2022-02-07] MEDS: APIXABAN 5 MG TABLET PO SCH ×2 (09:39→18:02)
[2022-02-07] MEDS: FUROSEMIDE 40MG TABLET PO SCH (09:39)
[2022-02-07] MEDS: FAMOTIDINE 20MG TABLET PO SCH ×2 (09:39→21:50)
[2022-02-07] MEDS: SPIRONOLACTONE 25MG TABLET PO SCH (09:40)
[2022-02-07] MEDS: LOSARTAN POTASSIUM 25 MG TABLET PO SCH (09:40)
[2022-02-07] MEDS: ASPIRIN 81MG EC TABLET PO SCH (09:40)
[2022-02-07] MEDS: FERROUS SULFATE 325MG TABLET PO SCH ×3 (09:41→18:02)
[2022-02-07] MEDS ORDERED: AZITHROMYCIN 500 MG TABLET PO SCH (13:00)
[2022-02-07] MEDS: ATORVASTATIN CALCIUM 40MG TABLET PO SCH (21:50)
[2022-02-08] VITALS: BP 139/72
[2022-02-08] MEDS: IPRATROPIUM/ALBUTEROL 0.5-3(2.5)MG/3ML NEB HHN SCH ×4 (01:06→12:06)
[2022-02-08 04:00] VITALS: BP 135/40
[2022-02-08 07:04] LABS: BASOPHILS % 0.5 % (0.0-2.0); EOSINOPHILS % 0.3 % (0.0-5.0); HEMATOCRIT. 31.3 % (42.0-52.0); HEMOGLOBIN. 9.6 g/dL (14.0-18.0); LYMPHOCYTES % 17.6 % (20.0-50.0); MEAN CORPUSCULAR HEMOGLOBIN 24.7 pg (28.0-32.0); MEAN CORPUSCULAR VOLUME 80.4 fL (80.0-94.0); MEAN PLATELET VOLUME 7.4 fl (7.4-10.4); MONOCYTES % 8.4 % (2.0-8.0); NEUTROPHILS % 73.2 % (40.0-76.0); PLATELET 525 x1000/uL (130-400); RED BLOOD CELL COUNT 3.89 mill/uL (4.7-6.1); RED CELL DISTRIBUTION WIDTH 23.7 % (11.6-14.6)
[2022-02-08 08:00] VITALS: BP 149/78
[2022-02-08 08:18] LABS: CHLORIDE 104 mEq/L (98-107)
[2022-02-08] MEDS: LOSARTAN POTASSIUM 25 MG TABLET PO SCH (08:58)
[2022-02-08] MEDS: ASPIRIN 81MG EC TABLET PO SCH (08:58)
[2022-02-08] MEDS: METHYLPREDNISOLONE SOD SUCC 40 MG/ML VIAL IV SCH ×2 (08:58→09:00)
[2022-02-08] MEDS: FUROSEMIDE 40MG TABLET PO SCH (08:58)
[2022-02-08] MEDS: FERROUS SULFATE 325MG TABLET PO SCH (08:58)
[2022-02-08] MEDS: APIXABAN 5 MG TABLET PO SCH (08:58)
[2022-02-08] MEDS: SPIRONOLACTONE 25MG TABLET PO SCH (08:59)
[2022-02-08] MEDS: FAMOTIDINE 20MG TABLET PO SCH (09:01)
[2022-02-08 11:40] VITALS: BP 135/75
[2022-02-08 12:00] VITALS: BP 135/70
== END 2022-02-08 17:04 | disposition home health service (06) | DRG 951 ==
LOC: ER 19:08 → MICUSO 02-04 01:03 → EDBEDREQ 02-04 01:15 → EDBEDREQTM 02-04 01:15 → 5EST 02-04 11:12
PROVIDERS: ADMIT Internal Medicine; ATTEND Internal Medicine
PROC: 5A09357 Assistance with Respiratory Ventilation, Less than 24 Consecutive Hours, Continuous Positive Airway Pressure (ICD-10-PCS; 2022-02-04)
PROC: 0KBP0ZZ Excision of Left Hip Muscle, Open Approach (ICD-10-PCS; principal; 2022-02-07)
PROC: 0KBN0ZZ Excision of Right Hip Muscle, Open Approach (ICD-10-PCS; 2022-02-07)
DX: I11.0 Hypertensive heart disease with heart failure (principal); J96.02 Acute respiratory failure with hypercapnia; L89.154 Pressure ulcer of sacral region, stage 4; E87.29 Other acidosis; C79.51 Secondary malignant neoplasm of bone; E46 Unspecified protein-calorie malnutrition; J44.1 Chronic obstructive pulmonary disease with (acute) exacerbation; Q78.2 Osteopetrosis; I50.43 Acute on chronic combined systolic (congestive) and diastolic (congestive) heart failure; C61 Malignant neoplasm of prostate; D75.838 Other thrombocytosis; D72.829 Elevated white blood cell count, unspecified; E11.9 Type 2 diabetes mellitus without complications; D50.9 Iron deficiency anemia, unspecified; D75.839 Thrombocytosis, unspecified; I25.10 Atherosclerotic heart disease of native coronary artery without angina pectoris; F17.210 Nicotine dependence, cigarettes, uncomplicated; F19.10 Other psychoactive substance abuse, uncomplicated; F12.10 Cannabis abuse, uncomplicated; F14.10 Cocaine abuse, uncomplicated; Z68.24 Body mass index [BMI] 24.0-24.9, adult; Z79.899 Other long term (current) drug therapy; Z85.46 Personal history of malignant neoplasm of prostate; Z83.3 Family history of diabetes mellitus; Z82.49 Family history of ischemic heart disease and other diseases of the circulatory system
CPT/HCPCS: 36415; 36600; 71045; 80053; 82375; 82805; 82962; 83880; 84134; 84145; 84439; 84443; 84484; 85025; 85379; 93005; 93970; 94640; 99291; C1893; J0456; J2920; J3475; J7060

== ENCOUNTER 2022-03-01 09:24 | Inpatient (IN) | payer OTHER ==
[~2022-03-01] VITALS: Ht 167.6 cm; Wt 60.0 kg
[2022-03-01] MEDS ORDERED: ALBUTEROL (0.083%) 2.5MG/3ML NEB HHN STA (09:33)
[2022-03-01] MEDS ORDERED: IPRATROPIUM BROMIDE (0.02%) 0.5MG/2.5ML NEB HHN STA (09:33)
[2022-03-01] MEDS ORDERED: METHYLPREDNISOLONE SOD SUCC 125 MG/2 ML VIAL IV STA (09:33)
[2022-03-01] MEDS ORDERED: NITROGLYCERIN 50MG PREMIX 250 ML IV ONE ×2 (09:45→10:00)
[2022-03-01] MEDS ORDERED: FUROSEMIDE 40MG/4ML VIAL IV ONE (09:45)
[2022-03-01 09:46] LABS: BASOPHILS % 2.2 % (0.0-2.0); HEMATOCRIT. 31.9 % (42.0-52.0); HEMOGLOBIN. 9.8 g/dL (14.0-18.0); LYMPHOCYTES % 46.3 % (20.0-50.0); MEAN CORPUSCULAR HEMOGLOBIN 25.4 pg (28.0-32.0); MEAN CORPUSCULAR VOLUME 82.5 fL (80.0-94.0); MEAN PLATELET VOLUME 8.1 fl (7.4-10.4); MONOCYTES % 9.1 % (2.0-8.0); NEUTROPHILS % 41.4 % (40.0-76.0); PLATELET 495 x1000/uL (130-400); RED BLOOD CELL COUNT 3.87 mill/uL (4.7-6.1); RED CELL DISTRIBUTION WIDTH 23.5 % (11.6-14.6)
[2022-03-01 09:54] LABS: CHLORIDE 104 mEq/L (98-107)
[2022-03-01 10:02] LABS: INR 1.1; PROTHROMBIN TIME 11.4 sec (9.6-11.0)
[2022-03-01 10:05] LABS: ETHANOL BLOOD < 10 mg/dL
[2022-03-01 10:14] LABS: BG BASE EXCESS -4.1 mmol/L (-2.0-2.0); BG CARBOXYHEMOGLOBIN 2.6 % (0.5-1.5); BG DEOXYHEMOGLOBIN 0.5 % (0.0-5.0); BG FRACTION INSPIRED OXYGEN 100; BG METHEMOGLOBIN 0.9 % (0.0-1.5); BG OXYGEN SATURATION 99.5 % (92.0-98.5); BG PCO2 58.8 mmHg (35.0-45.0); BG PH 7.228 (7.350-7.450); BG PO2 352.4 mmHg (75.0-100.0); BG SAMPLE SITE RIGHT RADIAL; BG VENT MODE MASK - BIPAP
[2022-03-01] MEDS ORDERED: MAGNESIUM 2 G PREMIX 50 ML IV ONE (10:15)
[2022-03-01] MEDS ORDERED: KCL 20MEQ/100ML PREMIX 100 ML IV ONE (10:15)
[2022-03-01 11:05] LABS: PLATELET ESTIMATE INCREASED
[2022-03-01] MEDS ORDERED: POTASSIUM CHLORIDE 20MEQ TABLET SR PO NR ×2 (14:00→15:00)
[2022-03-01 14:38] LABS: CLARITY URINE CLEAR (CLEAR); COLOR URINE YELLOW (YELLOW); KETONES URINE NEGATIVE (NEGATIVE); LEUKOCYTE ESTERASE URINE NEGATIVE (NEGATIVE); NITRITE URINE NEGATIVE (NEGATIVE); OCCULT BLOOD URINE NEGATIVE (NEGATIVE); PROTEIN URINE 1+ (NEGATIVE); SPECIFIC GRAVITY URINE 1.011 (1.005-1.030)
[2022-03-01 15:20] LABS: *AMPHETAMINES SCREEN URINE NEGATIVE (NEGATIVE); *BARBITURATES SCREEN URINE NEGATIVE (NEGATIVE); *BENZODIAZEPINES SCREEN URINE NEGATIVE (NEGATIVE); *COCAINE SCREEN URINE PRESUMTIVE POSITIVE (NEGATIVE); CANNABINOID URINE SCREEN PRESUMTIVE POSITIVE (NEGATIVE); METHADONE URINE SCREEN NEGATIVE (NEGATIVE); OPIATES URINE SCREEN NEGATIVE (NEGATIVE); PHENCYCLIDINE URINE SCREEN NEGATIVE (NEGATIVE)
[2022-03-01] MEDS ORDERED: IPRATROPIUM/ALBUTEROL 0.5-3(2.5)MG/3ML NEB HHN PRN (22:00)
[2022-03-01] MEDS ORDERED: HYDRALAZINE 20MG/ML VIAL IV PRN (22:00)
[2022-03-01] MEDS ORDERED: BUDESONIDE 0.5MG/2ML NEB HHN SCH (22:00)
[2022-03-01] MEDS ORDERED: LOSARTAN POTASSIUM 25 MG TABLET PO SCH (22:00)
[2022-03-01] MEDS: IPRATROPIUM/ALBUTEROL 0.5-3(2.5)MG/3ML NEB HHN SCH (23:12)
[2022-03-01] MEDS ORDERED: POTASSIUM CHLORIDE 20MEQ TABLET SR PO SCH (23:45)
[2022-03-02] MEDS: IPRATROPIUM/ALBUTEROL 0.5-3(2.5)MG/3ML NEB HHN SCH (02:14)
[2022-03-02] MEDS ORDERED: FUROSEMIDE 40MG/4ML VIAL IVP SCH (07:15)
[2022-03-02] MEDS ORDERED: CARVEDILOL 3.125 MG TABLET PO SCH (09:00)
[2022-03-02] MEDS ORDERED: LOSARTAN POTASSIUM 25 MG TABLET PO SCH (09:00)
[2022-03-02] MEDS ORDERED: ASPIRIN 81MG EC TABLET PO SCH (09:00)
[2022-03-02] MEDS ORDERED: APIXABAN 5 MG TABLET PO SCH (09:00)
[2022-03-02 09:55] VITALS: BP 128/84
[2022-03-02] MEDS ORDERED: ATORVASTATIN CALCIUM 40MG TABLET PO SCH (21:00)
== END 2022-03-02 11:11 | disposition left against medical advice (07) | DRG 194 ==
LOC: ER 09:43 → MICUSO 10:54 → EDBEDREQ 10:57 → EDBEDREQTM 10:57
PROVIDERS: ADMIT Internal Medicine; ATTEND Internal Medicine
PROC: 5A09357 Assistance with Respiratory Ventilation, Less than 24 Consecutive Hours, Continuous Positive Airway Pressure (ICD-10-PCS; principal; 2022-03-01)
PROC: 5A09357 Assistance with Respiratory Ventilation, Less than 24 Consecutive Hours, Continuous Positive Airway Pressure (ICD-10-PCS; 2022-03-01)
DX: I11.0 Hypertensive heart disease with heart failure (principal); J96.01 Acute respiratory failure with hypoxia; G93.41 Metabolic encephalopathy; J44.1 Chronic obstructive pulmonary disease with (acute) exacerbation; I42.9 Cardiomyopathy, unspecified; D50.9 Iron deficiency anemia, unspecified; E11.9 Type 2 diabetes mellitus without complications; I50.23 Acute on chronic systolic (congestive) heart failure; E78.5 Hyperlipidemia, unspecified; Z20.822 Contact with and (suspected) exposure to COVID-19; F14.10 Cocaine abuse, uncomplicated; E87.6 Hypokalemia; I34.0 Nonrheumatic mitral (valve) insufficiency; F19.129 Other psychoactive substance abuse with intoxication, unspecified; F17.210 Nicotine dependence, cigarettes, uncomplicated; Z82.49 Family history of ischemic heart disease and other diseases of the circulatory system; Z79.01 Long term (current) use of anticoagulants; Z85.46 Personal history of malignant neoplasm of prostate; Z83.3 Family history of diabetes mellitus; Z86.718 Personal history of other venous thrombosis and embolism; Z53.29 Procedure and treatment not carried out because of patient's decision for other reasons; Z91.199 Patient's noncompliance with other medical treatment and regimen due to unspecified reason
CPT/HCPCS: 36415; 36600; 71045; 80053; 80305; 80320; 81003; 82375; 82805; 83735; 83880; 84145; 84484; 85025; 87426; 87804; 93005; 94640; 94660; 99291; C9803; J1940; J2930; J3475; J3480; J3490; G0480